=== PATIENT | female | born 1965 | race Caucasian/White ===

== ENCOUNTER 2017-04-14 17:58 | Inpatient (IN) | payer OTHER ==
[2017-04-14 18:19] LABS: Actual Bicarbonate (HCO3a) 21.6 mEq/L (22-26); Base Excess (BEa) -3.9 mEq/L (0 (+/-) 2.5); CO2 Tension 40.7 mmHg (35.0-45.0); Hematocrit-ABG 28.1 % (36.0-47.0); Hemoglobin (Hb) 9.4 g/dL (12.0-16.0); O2 Tension (PaO2) 204.5 mmHg (80.0-100.0); pH, Arterial 7.34 (7.35-7.45)
[2017-04-14 18:20] LABS: ALV-art Gradient 457.625 (0-20); Analyzer IN Cardio ER; Calcium, Ionized 1.1 mmol/L (1.12-1.30); Puncture Site RRA
[2017-04-14 18:37] LABS: #Eosinphils 0.2 thou/uL (0.0-0.7); #Lymphocytes 1.2 thou/uL (1.20-3.40); #Monocytes 0.2 thou/uL (0.11-0.59); #Neutrophils 2.4 thou/uL (1.40-6.50); %Basophils 0.4 % (0.0-1.0); %Eosinophils 4.2 % (0.0-10.0); %Monocytes 4.7 % (0.0-10.0); %Neutrophils 59.8 % (42.0-75.0); Hemoglobin 10.3 g/dL (12.0-16.0); Mean Corpuscular Hemoglobin 29.9 pg (27.0-31.0); Mean Corpuscular Volume 90.7 fl (81.0-99.0); Mean Platelet Volume 7.6 fL (7.4-10.4); Platelet Count 230 thou/uL (130-400); RBC Distribution Width 11.5 % (11.5-14.5); Red Blood Cell (RBC) Count 3.44 mill/uL (4.20-5.40)
[2017-04-14 18:39] LABS: Bilirubin Negative (Negative); Blood, Urine Small (Negative); Clarity CLEAR (Clear); Glucose, Urine (Dipstick) 100 mg/dL (Negative); Leukocyte Small (Negative); Nitrite Negative (Negative); Protein, Urine (Dipstick) Trace mg/dL (Neg-Trace)
[2017-04-14 18:41] LABS: Bacteria/HPF None Seen HPF (None Seen); Hyaline Casts/LPF 4-6 HYALINE CAST LPF (0-3 Hyaline)
[2017-04-14 18:47] LABS: INR-International Normal Ratio 1.1; PTT 29.5 SEC (22.9-36.1); Prothrombin Time 14.4 SEC (12.0-14.7)
[2017-04-14 18:50] LABS: Renal Epithelial None Seen HPF (0-3); Transitional Epithelial NONE SEEN HPF (0-3)
[2017-04-14 18:52] LABS: Amphetamine Not Detected (NotDetected); Barbiturates Screen Not Detected (NotDetected); Benzodiazepine Screen Detected (NotDetected); Cocaine Metabolite Screen Not Detected (NotDetected); Medtox Control Line Valid? VALID (VALID); Medtox Reader # READER 1; Methadone Not Detected (NotDetected); Methamphetamine Not Detected (NotDetected); Opiate Screen Not Detected (NotDetected); Oxycodone Screen Detected (NotDetected); Phencyclidine (PCP) Not Detected (NotDetected); THC/Cannabinoid Screen Not Detected (NotDetected); Tricyclic Screen Not Detected (NotDetected)
[2017-04-14 18:55] LABS: D-Dimer Test Less than 0.27 *mcg/mL (0.27-0.43)
[2017-04-14 18:58] LABS: Alcohol Less than 10 mg/dL (Less than 10); Salicylate Less than 8.0 mg/dL (15.0-30.0)
[2017-04-14 19:00] LABS: ALT (SGPT) 27 U/L (8-55); AST (SGOT) 29 U/L (5-34); Albumin 3.5 g/dL (3.5-5.0); Alkaline Phosphatase 81 U/L (40-150); Anion Gap 18 mmol/L (10-20); BUN (Urea Nitrogen) 10 mg/dL (9.8-20.1); Bilirubin, Total 0.2 mg/dL (0.2-1.2); CK (CPK) 65 U/L (29-168); Calc. Creatinine Clearance 0 mL/min (70-130); Calcium 8.3 mg/dL (7.8-10.44); Carbon Dioxide 17 mmol/L (22-29); Chloride 108 mmol/L (98-107); Estimated GFR-MDRD 81; Globulin 2.4 g/dL (2.4-3.5); Glucose 182 mg/dL (70-105); Potassium 3.9 mmol/L (3.5-5.1); Protein, Total 5.9 g/dL (6.0-8.3); Sodium 139 mmol/L (136-145)
[2017-04-14 19:02] LABS: CKMB 0.7 ng/mL (0-6.6); Troponin I Less than 0.010 ng/mL (< 0.028)
--- NOTE | 2017-04-14 20:03 | RAD ---
EXAM: ONE VIEW CHEST 04/14/17 HISTORY: Endotracheal tube placement. Intubation. COMPARISON: None. FINDINGS: Endotracheal tube at the level of the clavicles. Nasogastric tube extends beyond the diaphragm. Dista l tip in the left upper quadrant. Normal cardiac silhouette. Pulmonary vessels and hilum are normal. Costophrenic angles are clear. Possible opacity in the right lung base. No pneumothorax on this supin e projection. No osseous abnormalities. IMPRESSION: 1. Possible focal opacity in the right lung base. 2. Endotracheal and nasogastric tubes as above. If there is concern, consider chest CT. POS: PPP
--- NOTE | 2017-04-14 20:14 | CT ---
EXAM: NONCONTRAST HEAD CT 04/14/17 HISTORY: Fall. Unresponsive patient. COMPARISON: None. TECHNIQUE: Noncontrast head CT is performed from skull base to skull vertex. FINDINGS: No parenchymal hemorrhage. No extra-axial hematoma. No midline shift. Basilar cisterns are patent. Br ain volume is age appropriate. Cortical greco-white matter differentiation is preserved. Ventricles an d sulci are patent and symmetric. Adequate aeration of the sinuses and mastoid air cells. Calvarium i s intact. IMPRESSION: No intracranial posttraumatic sequela. POS: PPP
[2017-04-14] MEDS ORDERED: Fentanyl 100 MCG/2 ML VIAL ONE (20:15)
--- NOTE | 2017-04-14 20:16 | CT ---
EXAM: CT CERVICAL SPINE WITHOUT CONTRAST 04/14/17 HISTORY: Unresponsive patient. Patient found down. Evaluate for fracture. COMPARISON: None. TECHNIQUE: CT cervical spine is performed without contrast. Reformatted images are submitted for interpretation. FINDINGS: The visualized soft tissue neck structures, upper mediastinum, and lung apices are unremarkable. Endo tracheal and nasogastric tube are identified. Central spinal canal and neural foramina are patent. Evaluation is limited by technique. Lateral mass of C1 and C2 articulate appropriately. Odontoid process is intact. Appropriate articulat ion of the facets. Cervical spine vertebral body height is maintained. No fracture. No malalignment o n the sagittal reformatted images. IMPRESSION: No fracture. POS: PPP
[2017-04-14 20:23] LABS: Pregnancy Test - Urine (BHCG) Negative (Negative); Pregu Control Background? CLEAR/WHITE (CLR/WHITE); Pregu Control Bar Appear? YES (CONTROL BAR)
[2017-04-14] MEDS ORDERED: Azithromycin 500 MG in Sodium Chloride 0.9% 250 ML 250 ML IVPB ONE (20:30)
[2017-04-14] MEDS ORDERED: cefTRIAXone\\ROCEPHIN 2 GM in Sodium Chloride 0.9% 100 ML IVPB ONE (20:30)
[2017-04-14] MEDS ORDERED: Propofol 1,000 MG/100 ML VIAL IV ONE (20:43)
[2017-04-14] MEDS ORDERED: Ondansetron HCl/PF 4 MG/2 ML Vial IVP PRN (21:32)
[2017-04-14] MEDS ORDERED: Acetaminophen 325 MG TAB PO PRN (21:32)
[2017-04-14] MEDS ORDERED: Ondansetron ODT 4 MG TAB SL PRN (21:32)
[2017-04-14 22:35] LABS: Lactic Acid 1.5 mmol/L (0.5-2.2)
[2017-04-14] MEDS ORDERED: Sedation Protocol FS ONE (23:53)
[2017-04-14] MEDS ORDERED: Acetaminophen 650 MG Suppository PR PRN (23:53)
[2017-04-14] MEDS ORDERED: Ventilator Sedation Protocol 1 EACH FS ONE (23:53)
[2017-04-14] MEDS ORDERED: cefTRIAXone\\ROCEPHIN 2 GM in Sodium Chloride 0.9% 100 ML IVPB SCH (23:59)
[2017-04-15] MEDS ORDERED: Propofol 1,000 MG/100 ML VIAL IV PRN (00:03)
[2017-04-15] MEDS ORDERED: Lorazepam 2 MG/ML VIAL SLOW IVP PRN (00:03)
[2017-04-15] MEDS ORDERED: Fentanyl 20 MCG/ML 250 ML IVPB SCH (00:03)
[2017-04-15] MEDS ORDERED: DISCONTINUE PREVIOUS NARCOTIC PAIN MEDICATIONS AND BENZODIAZEPINES FS SCH (00:03)
[2017-04-15] MEDS ORDERED: Morphine 2 MG/ML SYRINGE SLOW IVP PRN (00:03)
[2017-04-15] MEDS: Sodium Chloride 0.9% 1,000 ML IV SCH ×3 (01:20→20:33)
--- NOTE | 2017-04-15 02:05 | HP ---
PRIMARY CARE PHYSICIAN: Sage Goldstein D.O. DATE OF ADMISSION: 04/14/2017 TIME OF SERVICE: 2210 hours. CHIEF COMPLAINT: Found down. HISTORY OF PRESENT ILLNESS: Ms. Jiménez is a 51-year-old female with a history of chronic back pa in and hypothyroidism, who was seen last normal by her earlier this morning. The patient was coherent and awake enough and apparently functioning well around 1600 hours today when she picked he r daughters up from the school. The came home at 1715 and found her unresponsive on the bed. She was mouth breathing, so he called EMS. On their arrival, she was found to be unarousable. She was not protecting her airway, so was given 1 60 mg of ketamine, 80 mg of rocuronium and intubated in the field. She was brought into the emergenc y department for evaluation. Here, she was placed on the ventilator. Labs and chest x-rays were ordered and we were subsequently called for admission. The patient is unable to give me further history. I did talk to her . He is getting her [facility] cines here so we can get a complete list. He did have a friend who is a nurse go home and take pictu res and bottles over there and revealed some Xanax and Valium the patient had that she does not isatu lly take. PAST MEDICAL HISTORY: 1. Chronic back pain. 2. Hypothyroidism. PAST SURGICAL HISTORY: 1. Rhinoplasty. 2. Hysterectomy. 3. Bladder surgery. HOME MEDICATIONS: 1. Gabapentin, dose unknown. 2. Lyrica, dose unknown. 3. Some kind of cold medicine. 4. Hydrocodone CP p.r.n. pain. 5. Levothyroxine 50 mcg daily. 6. Brisdelle 7.5 mg daily. 7. Valium 10 mg p.r.n. and Xanax as needed. I am not sure these were prescribed. We are getting a more picture of the labels to see when these were actually filled. ALLERGIES: IODINE and IODINE-CONTAINING PRODUCTS. FAMILY HISTORY: Negative for clotting or bleeding disorder. No immune dysfunction per the . SOCIAL HISTORY: Negative for habits x3. REVIEW OF SYSTEMS: A ten-point review of systems is unobtainable due to the patient being sedated an d intubated. did say she has been having more back pain over the last several days than she normally has. PHYSICAL EXAMINATION: VITAL SIGNS: Temperature is afebrile, pulse 76, blood pressure 94/54, respiratory rate 18, satting 9 8% on the ventilator on arrival. While the time of transferring to the floor, temperature is 95.0, p ulse 55, blood pressure 130/63, respiratory rate 18, satting 100% on ventilation. GENERAL: She is sedated on propofol, intubated. She is on the ventilator. HEENT: Normocephalic, atraumatic. Her pupils are 2 mm and minimally reactive. Mucous membranes are moist. There is an oral endotracheal tube in place. NECK: Supple, without lymphadenopathy, JVD, or thyromegaly. Normal carotid upstrokes without bruits . LUNGS: Clear. No wheezes, no rales, no rhonchi. No prolonged expiratory phase. CARDIOVASCULAR: She is normal cardiac and regular. She has normal S1, S2. No S3 or S4. No audible murmurs. ABDOMEN: Soft, nontender, nondistended with good bowel sounds. There is no rebound, rigidity or gua rding. EXTREMITIES: No cyanosis, no clubbing, no edema. She has 2+ peripheral pulses in the dorsalis pedis , posterior tibial, and radial arteries bilaterally. SKIN: Warm, moist, and well perfused without any rashes or lesions. MUSCULOSKELETAL: Normal to inspection. She has no inflamed joints. No palpable effusions. NEUROLOGIC: Not testable due to sedated and paralyzed status. LABORATORY DATA: Sodium 139, potassium 3.9, chloride 108, bicarbonate 17, BUN 10, creatinine 0.75, g lucose 182, calcium of 8.3. Liver function is normal. Total protein of 5.9. CBC showed a white cou nt of 4.0 with normal differential, hemoglobin 10.3, hematocrit 31.2, and platelet count is 230,000. ABG showed a pH 7.34, pCO2 of 40, pO2 of 205, O2 saturation 99%, and a bicarbonate of 21.6. D-dimer is undetectable less than 0.27. INR was 1.1. Urinalysis showed 77 white cells, no bacteria, 4-6 squamous epithelial cells, likely contaminated spe cimen. Beta hCG was negative. Prolactin was severely elevated at 143.85. Lactic acid initially 3.0, repeat 6 hours later was down to 1.5. Chest x-ray showed a possible right basilar infiltrate. CT scan of her brain and spine negative for acute injury. ASSESSMENT AND PLAN: 1. Unresponsive. The patient may have incidentally overdosed on medications, but with elevated prol actin certainly, seizure moves up the list. There is no report of bowel or bladder incontinence when the found her. We will continue to watch her. She is currently sedated on propofol. We wi ll try to wean her sedation and see Neurology when she does. We could also see if she responds well to Romazicon or to Narcan. 2. Acute hypoxemic respiratory failure, intubated in the field. She remained on the ventilator charu ght. We will try to wake her up and see if we can extubate tomorrow. 3. Chronic back pain. 4. Hypothyroidism. 5. Possible narcotic or benzodiazepine overdose. The patient's regular medicines do not include macy zodiazepines; however, she does have a bottle of Valium and Xanax at home. Urine drug screen was pos itive for these. 6. Elevated prolactin, the patient certainly could have had a seizure. If she does not wake up read monster, may need to get a neurologic evaluation.
[2017-04-15] MEDS: Clindamycin/D5W 900 MG in Premix Bag 1 BAG IVPB SCH ×3 (06:00→22:18)
[2017-04-15] MEDS ORDERED: FLU VACC QS2017-18 36 mo. & older 0.5 ML SYRINGE IM ONE (09:00)
[2017-04-15] MEDS: Famotidine/PF 20 mg/2ml Vial SLOW IVP SCH ×2 (09:30→20:33)
--- NOTE | 2017-04-15 11:51 | PDOC.PN ---
- Subjective Encounter Start Date: 04/15/17 Encounter Start Time: 08:30 Subjective: sedated on vent - Objective Resuscitation Status: Resuscitation Status FULL:Full Resuscitation MAR Reviewed: Yes Vital Signs & Weight: Vital Signs (12 hours) Temp Pulse Resp BP 04/15/17 10:50 68 105/50 L 04/15/17 07:14 56 L 114/60 04/15/17 07:00 99.3 F 04/15/17 06:00 98.0 F 04/15/17 04:00 97.7 F 15 04/15/17 02:23 53 L 04/15/17 00:00 98.4 F 15 Most Recent Monitor Data Heart Rate from ECG 54 NIBP 97/57 NIBP BP-Mean 75 Respiration from ECG 15 SpO2 100 I&O: 04/14/17 04/15/17 04/16/17 06:59 06:59 06:59 Intake Total 826.7 Output Total 1065 40 Balance -238.3 -40 Result Diagrams: 04/14/17 18:05 04/14/17 18:05 Phys Exam - Physical Examination HEENT: PERRLA, sclera anicteric Neck: no JVD, supple Respiratory: no wheezing, no rales Cardiovascular: RRR, no significant murmur Gastrointestinal: soft, non-tender, positive bowel sounds Musculoskeletal: no edema, pulses present Neurological: non-focal Dx/Plan (1) Acute respiratory failure Code(s): J96.00 - ACUTE RESPIRATORY FAILURE, UNSP W HYPOXIA OR HYPERCAPNIA Status: Acute Qualifiers: Respiratory failure complication: hypoxia Qualified Code(s): J96.01 - Acute respiratory failure with hypoxia (2) Overdose Code(s): T50.901A - POISONING BY UNSP DRUG/MEDS/BIOL SUBST, ACCIDENTAL, INIT Status: Acute (3) Hypothyroidism Code(s): E03.9 - HYPOTHYROIDISM, UNSPECIFIED Status: Chronic Qualifiers: Hypothyroidism type: unspecified Qualified Code(s): E03.9 - Hypothyroidism , unspecified (4) Chronic anemia Code(s): D64.9 - ANEMIA, UNSPECIFIED Status: Chronic - Plan weaning per pulm advice -: will await cognitive and motor function once she is off sedation -: at bedside -: hemodynamically stable, no focal signs, no seizures witnessed -: is on multiple antibiotics: levaquin, ceftriaxone and clindamycin * . Review of Systems - Medications/Allergies Allergies/Adverse Reactions: Allergies Allergy/AdvReac Type Severity Reaction Status Date / Time Iodine and Iodide Containing Allergy Verified 08/07/16 12:36 Produc Medications: Current Medications Acetaminophen (Tylenol) 650 mg MN Q4H PRN PRN Reason: Headache/Fever or Pain Famotidine (Pepcid) 20 mg SLOW IVP Q12HR [facility] [place] Last Admin: 04/15/17 09:30 Dose: 20 mg Ceftriaxone Sodium 2 gm/ (Sodium Chloride) 100 mls @ 200 mls/hr IVPB 2359 MARLENE Last Admin: 04/15/17 01:20 Dose: 100 mls Clindamycin Phosphate/Dextrose (900 mg/ Device) 50 mls @ 100 mls/hr IVPB Q8HR [facility] [place] Last Admin: 04/15/17 06:00 Dose: 50 mls Levofloxacin 750 mg/ Device 150 mls @ 100 mls/hr IVPB Q24HR [facility] [place] Last Admin: 04/15/17 01:24 Dose: 150 mls Sodium Chloride (Normal Saline 0.9%) 1,000 mls @ 100 mls/hr IV .Q10H [facility] [place] Last Admin: 04/15/17 01:20 Dose: 1,000 mls Fentanyl (Fentanyl Cadd) 250 mls @ 0 mls/hr IVPB INF MARLENE; Titrate PRN Reason: Protocol Stop: 05/15/17 00:03 Fentanyl Citrate (Fentanyl Bolus) 250 mls @ 0 mls/hr IVPB PRN PRN; As Directed PRN Reason: Breakthrough pain Stop: 05/15/17 00:03 Lorazepam (Ativan) 2 mg SLOW IVP Q2H PRN PRN Reason: Anxiety to achieve Mahoney 2-3 Stop: 05/15/17 00:03 Morphine Sulfate (Morphine) 2 mg SLOW IVP Q2H PRN PRN Reason: Breakthrough pain Stop: 05/15/17 00:03 Discontinue Previous Narcotic Pain Medications And Benzodiazepines 1 each FS .ONE [facility] Stop: 05/15/17 00:03 Ondansetron HCl (Zofran) 4 mg IVP Q6H PRN PRN Reason: Nausea/Vomiting Propofol (Diprivan) 1,000 mg IV INF PRN; Protocol PRN Reason: TO ACHIEVE MAHONEY SCORE 2-3 Stop: 05/15/17 00:03
[2017-04-15] MEDS ORDERED: levETIRAcetam In NaCl (Iso-Os) 1,500 MG in Premix Bag 1 BAG IVPB SCH ×2 (13:15)
--- NOTE | 2017-04-15 13:28 | CON ---
DATE OF CONSULTATION: 04/15/2017 SERVICE: Pulmonary Medicine REASON FOR CONSULTATION: Intubated patient. HISTORY OF PRESENT ILLNESS: The patient is a 51-year-old white female. She was last seen in her [facility] yesterday. Everything was normal at that time and there was no viral prodrome or infectious issues. The patient's significant other went to work. When he came home, she was blue, and unresponsive. She had vomitus at the mouth. She does have chronic pain and anxiety issues for w gay is prescribed benzodiazepines and narcotics. She has no history of overdose that we are aware o f. She was intubated and brought to the emergency department. She cannot provide any additional francy ments of the history. PAST MEDICAL HISTORY: 1. Chronic back pain. 2. Hypothyroidism. PAST SURGICAL HISTORY: 1. Rhinoplasty. 2. Hysterectomy. 3. Bladder surgery. ALLERGIES: IODINE. MEDICATIONS: List of inpatient medications were reviewed. No specific updates were made at this sylvia e. FAMILY HISTORY: Noncontributory. SOCIAL HISTORY: Negative for alcohol, tobacco or illicit drug use. That being said, she over uses s ome of her home prescription medications. REVIEW OF SYSTEMS: Review of systems cannot be obtained as the patient is currently intubated under the influence of some sedation. PHYSICAL EXAMINATION: VITAL SIGNS: Afebrile with a T-max of 99.3. Pulse 68, blood pressure 105/50, respirations 15, satur ation 100% on 30% FiO2 and PEEP of 5. GENERAL: The patient is intubated. With some noxious stimuli, she is responding appropriately. She moves her bilateral lower extremities, upper extremities. She is breathing over the ventilator and demonstrates good eye reflexes HEENT: Normocephalic, atraumatic. Sclerae are white, conjunctivae pink. Oral mucosa is moist witho ut lesions. LUNGS: Decent air entry. Rhonchi are present. No prolonged expiratory phase or wheezing is appreci ated. HEART: Normal rate, regular. ABDOMEN: Soft, nontender, nondistended. Bowel sounds are positive. MUSCULOSKELETAL: No cyanosis or clubbing. There is no pitting in the bilateral lower extremities. NEUROLOGIC: Grossly nonfocal. LABORATORY DATA: WBC 4.0, hemoglobin 10.3, platelets 230,000. INR 1.1, D-dimer 0.27. PH 7.34, pCO2 40, pO2 204 on 100% FiO2 at this time. Lactate is cleared to 1.5. Basic metabolic profile, liver f unction studies are otherwise unremarkable. Prolactin level is quite elevated. Urinalysis is unrema rkable. Acetaminophen level is elevated, benzodiazepine, oxycodone screen is positive. Plasma alcoh ol was negative as well. IMAGIN. CT of the brain demonstrates no acute intracranial abnormality. 2. CT of the C-spine demonstrates no obvious fracture or subluxation. 3. Chest x-ray demonstrates endotracheal tube is in good position, roughly 2 cm above the level of t he mohan. Right lung base has a possible opacification, perhaps consistent with aspiration related changes. Otherwise, no acute cardiopulmonary abnormalities identified. ASSESSMENT: 1. Acute hypoxic respiratory failure. 2. Metabolic encephalopathy. 3. Seizure, possible. 4. Medication overuse including benzodiazepine and narcotics. PLAN: I will turn off the propofol. All sedating medications and pain medications will be held for the time being. Once the patient wakes up more clearly, she will be put on spontaneous breathing tri al and extubation will be considered. Pulmonary Care will continue to follow while the patient remai ns in this location. Critical care time: 40 minutes.
[2017-04-16] MEDS ORDERED: Morphine 2 MG/ML SYRINGE SLOW IVP SCH (02:15)
[2017-04-16] MEDS: Sodium Chloride 0.9% 1,000 ML IV SCH (06:02)
[2017-04-16] MEDS: Clindamycin/D5W 900 MG in Premix Bag 1 BAG IVPB SCH (06:03)
[2017-04-16] MEDS: Famotidine/PF 20 mg/2ml Vial SLOW IVP SCH (08:53)
--- NOTE | 2017-04-16 12:12 | PDOC.PN ---
- Subjective Encounter Start Date: 04/16/17 Encounter Start Time: 09:40 Subjective: got extubated this am -: has some hoarseness, no sob -: at bedside, moves all extre, oriented - Objective Resuscitation Status: Resuscitation Status FULL:Full Resuscitation MAR Reviewed: Yes Vital Signs & Weight: Vital Signs (12 hours) Temp Pulse Resp BP Pulse Ox 04/16/17 11:00 99 F 04/16/17 08:00 99.3 F 76 17 100 04/16/17 07:00 99.3 F 04/16/17 06:00 15 04/16/17 04:00 98.4 F 19 04/16/17 02:55 69 139/82 04/16/17 02:00 15 Weight Admit Weight 151 lb Weight 154 lb 5.177 oz Most Recent Monitor Data Heart Rate from ECG 81 NIBP 125/43 NIBP BP-Mean 89 Respiration from ECG 18 SpO2 100 I&O: 04/15/17 04/16/17 04/17/17 06:59 06:59 06:59 Intake Total 826.7 3625.8 90 Output Total 1065 848 320 Balance -238.3 2777.8 -230 Result Diagrams: 04/14/17 18:05 04/14/17 18:05 Phys Exam - Physical Examination HEENT: PERRLA, moist MMs Neck: no JVD, supple Respiratory: no wheezing, no rales rhonchi+ Cardiovascular: RRR, no significant murmur Gastrointestinal: soft, non-tender, positive bowel sounds Musculoskeletal: no edema, pulses present Neurological: non-focal, moves all 4 limbs Psychiatric: A&O x 3 Dx/Plan (1) Acute respiratory failure Code(s): J96.00 - ACUTE RESPIRATORY FAILURE, UNSP W HYPOXIA OR HYPERCAPNIA Status: Resolved Qualifiers: Respiratory failure complication: hypoxia Qualified Code(s): J96.01 - Acute respiratory failure with hypoxia (2) Overdose Code(s): T50.901A - POISONING BY UNSP DRUG/MEDS/BIOL SUBST, ACCIDENTAL, INIT Status: Acute (3) Hypothyroidism Code(s): E03.9 - HYPOTHYROIDISM, UNSPECIFIED Status: Chronic Qualifiers: Hypothyroidism type: unspecified Qualified Code(s): E03.9 - Hypothyroidism , unspecified (4) Chronic anemia Code(s): D64.9 - ANEMIA, UNSPECIFIED Status: Chronic - Plan oob to chair as tolerated -: counselled to exercise on bed -: oral liq diet and advance as tolerated -: hemodynamically and neurologically stable -: oral omnicef, may dc in am if stable * . Review of Systems - Medications/Allergies Allergies/Adverse Reactions: Allergies Allergy/AdvReac Type Severity Reaction Status Date / Time Iodine and Iodide Containing Allergy Verified 08/07/16 12:36 Produc Medications: Current Medications Acetaminophen (Tylenol) 650 mg SC Q4H PRN PRN Reason: Headache/Fever or Pain Famotidine (Pepcid) 20 mg SLOW IVP Q12HR [facility] Last Admin: 04/16/17 08:53 Dose: 20 mg Clindamycin Phosphate/Dextrose (900 mg/ Device) 50 mls @ 100 mls/hr IVPB Q8HR [facility] Last Admin: 04/16/17 06:03 Dose: 50 mls Levofloxacin 750 mg/ Device 150 mls @ 100 mls/hr IVPB Q24HR [facility] Last Admin: 04/16/17 00:46 Dose: 150 mls Sodium Chloride (Normal Saline 0.9%) 1,000 mls @ 100 mls/hr IV .Q10H [facility] Last Admin: 04/16/17 06:02 Dose: Not Given Ondansetron HCl (Zofran) 4 mg IVP Q6H PRN PRN Reason: Nausea/Vomiting Sodium Chloride (Flush - Normal Saline) 10 ml IVF Q12HR [facility] Last Admin: 04/16/17 08:53 Dose: 10 ml Sodium Chloride (Flush - Normal Saline) 10 ml IVF PRN PRN PRN Reason: Saline Flush
[2017-04-16] MEDS ORDERED: traMADol HCl 50 MG TAB PO PRN (12:31)
--- NOTE | 2017-04-16 12:42 | PRG ---
DATE OF SERVICE: 04/16/2017 SERVICE: Medicine. INTERVAL HISTORY: The patient is doing fine from a respiratory standpoint. She denies any current f lm, chills, nausea, vomiting or chest discomfort. She is essentially returning to her usual state of health and has no specific complaints otherwise. She is on mechanical ventilation this morning a nd following all commands. She is breathing comfortably, but otherwise, requesting us to be removed. She is much more awake and alert. She is CAM negative. OBJECTIVE: VITAL SIGNS: Afebrile, pulse 81, blood pressure 125/43, respirations 18, saturation 100% on 27% FiO2 and PEEP of 5. GENERAL: The patient is awake, alert, no apparent distress. She is CAM negative. HEENT: Normocephalic, atraumatic. Sclerae are white, conjunctivae pink. Oral and nasal mucosa is m oist without lesions. LUNGS: Excellent air entry. There is no prolonged expiratory phase, wheezing, rhonchi or crackles. HEART: Normal rate, regular. ABDOMEN: Soft, nontender, nondistended. Bowel sounds positive. MUSCULOSKELETAL: No cyanosis or clubbing. There is no pitting in the bilateral lower extremities. NEUROLOGIC: Grossly nonfocal. LABORATORY DATA: WBC 4.0, hemoglobin 10.3, platelets are 3000. Lactate has cleared to 1.5. ASSESSMENT: 1. Acute hypoxic respiratory failure, resolved. 2. Metabolic encephalopathy, resolved. 3. Overdose of benzodiazepines and narcotics. DISCUSSION: The patient's EEG was negative for any epileptiform discharges. The Keppra has been dis continued. We put on a spontaneous breathing trial and if she meets criteria, extubation will be con sidered. I will transition her over to p.o. Augmentin, which can be continued to complete a 5-day c ourse for possible aspiration related Diseases. Pulmonary Critical Care will continue to follow monae e she remains in this location.
[2017-04-16] MEDS: Gabapentin 300 MG CAP PO SCH ×2 (15:13→20:43)
[2017-04-16] MEDS: Ondansetron HCl/PF 4 MG/2 ML Vial IVP PRN (16:36)
[2017-04-16] MEDS: Cefdinir 300 MG CAP PO SCH (20:40)
[2017-04-17 04:34] LABS: Anion Gap 11 mmol/L (10-20); BUN (Urea Nitrogen) 9 mg/dL (9.8-20.1); Calc. Creatinine Clearance 108 mL/min (70-130); Calcium 8.9 mg/dL (7.8-10.44); Carbon Dioxide 22 mmol/L (22-29); Chloride 108 mmol/L (98-107); Estimated GFR-MDRD Greater than 90; Glucose 66 mg/dL (70-105); Magnesium 1.8 mg/dL (1.6-2.6); Phosphorus 2.7 mg/dL (2.3-4.7); Potassium 3.3 mmol/L (3.5-5.1); Sodium 138 mmol/L (136-145)
[2017-04-17] MEDS: Cefdinir 300 MG CAP PO SCH ×2 (10:13→20:12)
[2017-04-17] MEDS: Gabapentin 300 MG CAP PO SCH ×3 (10:13→20:12)
[2017-04-17] MEDS: Ondansetron HCl/PF 4 MG/2 ML Vial IVP PRN (10:15)
--- NOTE | 2017-04-17 13:31 | PRG ---
DATE OF SERVICE: 04/17/2017 SERVICE: Pulmonary Medicine. INTERVAL HISTORY: The patient is doing great from a respiratory standpoint. She denies any current fevers, chills, nausea, vomiting. She has a little bit of chest discomfort in the anterior chest ass ociated with her chest compressions. Outside of this, there have been no events overnight. She had a little bit of nausea, but no vomiting. PHYSICAL EXAMINATION: VITAL SIGNS: Afebrile, pulse 59, blood pressure 113/66, respirations 18, saturation 98% on room air. GENERAL: Patient is awake, alert, in no apparent distress. LUNGS: Excellent air entry. There is no prolonged expiratory phase or wheezing. No rhonchi are pre sent, but clear with cough. HEART: Normal rate, regular. ABDOMEN: Soft, nontender, nondistended. Bowel sounds are positive. MUSCULOSKELETAL: No cyanosis or clubbing. There is no pitting in the bilateral lower extremities. NEUROLOGIC: Grossly nonfocal. LABORATORY DATA: Basic metabolic profile is only significant for potassium of 3.5. Magnesium and ph osphorus all within normal limits. The prolactin has returned to normal range. Urine cultures negat samy. ASSESSMENT: 1. Acute hypoxic respiratory failure, resolved. 2. Metabolic encephalopathy, resolved. 3. Overdose with benzodiazepines and narcotics. 4. Aspiration pneumonitis versus community-acquired pneumonia secondary to overt aspiration, DISCUSSION AND PLAN: The patient will need to have a repeat chest x-ray in the outpatient setting in 4 weeks to make certain the infiltrate has cleared. She can complete a 5-day course of Augmentin. At this point, there is no respiratory issue keeping the patient in the hospital. As such, she has n o further requirements for inpatient Pulmonary or Critical Care opinion, I will sign off. If she dec ompensates, please give Dr. Guevara a phone call over the weekend.
[2017-04-17 13:36] VITALS: BMI 26.4
[2017-04-17] MEDS: Albuterol Sulfate 1.25 MG/3 ML NEB NEB SCH ×2 (13:52→23:38)
--- NOTE | 2017-04-17 15:23 | PDOC.PN ---
- Subjective Encounter Start Date: 04/17/17 Encounter Start Time: 12:00 Subjective: c/o sob and retrosternal dyscomfort -: had some dizziness this am - Objective Resuscitation Status: Resuscitation Status FULL:Full Resuscitation MAR Reviewed: Yes Vital Signs & Weight: Vital Signs (12 hours) Temp Pulse Resp BP Pulse Ox 04/17/17 13:52 65 14 99 04/17/17 08:00 97.9 F 59 L 18 113/66 98 04/17/17 04:00 98.0 F 59 L 16 117/59 L 97 Weight Admit Weight 151 lb Weight 154 lb 5.177 oz Most Recent Monitor Data Heart Rate from ECG 67 NIBP 98/41 NIBP BP-Mean 71 Respiration from ECG 16 SpO2 100 I&O: 04/16/17 04/17/17 04/18/17 06:59 06:59 06:59 Intake Total 3625.8 882 200 Output Total 848 585 Balance 2777.8 297 200 Result Diagrams: 04/14/17 18:05 04/17/17 03:51 Phys Exam - Physical Examination HEENT: PERRLA, moist MMs Neck: no JVD, supple Respiratory: no wheezing, no rales Cardiovascular: RRR, no significant murmur Gastrointestinal: soft, non-tender, no distention, positive bowel sounds Musculoskeletal: no edema, pulses present Neurological: non-focal, moves all 4 limbs Psychiatric: A&O x 3 Dx/Plan (1) Acute respiratory failure Code(s): J96.00 - ACUTE RESPIRATORY FAILURE, UNSP W HYPOXIA OR HYPERCAPNIA Status: Resolved Qualifiers: Respiratory failure complication: hypoxia Qualified Code(s): J96.01 - Acute respiratory failure with hypoxia (2) Overdose Code(s): T50.901A - POISONING BY UNSP DRUG/MEDS/BIOL SUBST, ACCIDENTAL, INIT Status: Resolved (3) Hypothyroidism Code(s): E03.9 - HYPOTHYROIDISM, UNSPECIFIED Status: Chronic Qualifiers: Hypothyroidism type: unspecified Qualified Code(s): E03.9 - Hypothyroidism , unspecified (4) Chronic anemia Code(s): D64.9 - ANEMIA, UNSPECIFIED Status: Chronic - Plan may dc anytime if she is eating and amb in hallway -: d/w patient and at bedside -: augmentin x5 days -: nebs here/ inh on dc * . Review of Systems - Medications/Allergies Allergies/Adverse Reactions: Allergies Allergy/AdvReac Type Severity Reaction Status Date / Time Iodine and Iodide Containing Allergy Verified 08/07/16 12:36 Produc Medications: Current Medications Acetaminophen (Tylenol) 650 mg [place] Q4H PRN PRN Reason: Headache/Fever or Pain Albuterol Sulfate (Albuterol Sulfate) 1.25 mg NEB [id number] [facility] [place] Last Admin: 04/17/17 13:52 Dose: 1.25 mg Cefdinir (Omnicef) 300 mg PO BID [facility] [place] Last Admin: 04/17/17 10:13 Dose: 300 mg Gabapentin (Neurontin) 300 mg PO TID [facility] [place] Last Admin: 04/17/17 13:28 Dose: Not Given Ondansetron HCl (Zofran) 4 mg IVP Q6H PRN PRN Reason: Nausea/Vomiting Last Admin: 04/17/17 10:15 Dose: 4 mg Potassium Chloride (K-Dur) 40 meq PO BID[facility] Stop: 04/18/17 08:01 Sodium Chloride (Flush - Normal Saline) 10 ml IVF Q12HR MARLENE Last Admin: 04/17/17 10:13 Dose: 10 ml Sodium Chloride (Flush - Normal Saline) 10 ml IVF PRN PRN PRN Reason: Saline Flush Tramadol HCl (Ultram) 100 mg PO Q6H PRN PRN Reason: Pain Last Admin: 04/16/17 16:35 Dose: 100 mg
[2017-04-17] MEDS ORDERED: Potassium Chloride 20 MEQ TAB PO SCH (17:00)
[2017-04-18] MEDS: Albuterol Sulfate 1.25 MG/3 ML NEB NEB SCH (07:22)
[2017-04-18] MEDS: Gabapentin 300 MG CAP PO SCH (08:38)
[2017-04-18] MEDS: Cefdinir 300 MG CAP PO SCH (08:39)
[2017-04-18 08:44] VITALS: BP 131/79; TEMP 97.8
--- NOTE | 2017-04-18 14:55 | PDOC.PN ---
- Subjective Encounter Start Date: 04/18/17 Encounter Start Time: 07:15 Subjective: feels better, is eating and amb in hallway - Objective Resuscitation Status: Resuscitation Status FULL:Full Resuscitation MAR Reviewed: Yes Vital Signs & Weight: Vital Signs (12 hours) Temp Pulse Resp BP Pulse Ox 04/18/17 08:00 97.8 F 64 16 131/79 99 04/18/17 07:22 62 14 97 Weight Admit Weight 151 lb Weight 154 lb 5.177 oz Most Recent Monitor Data Heart Rate from ECG 67 NIBP 98/41 NIBP BP-Mean 71 Respiration from ECG 16 SpO2 100 I&O: 04/17/17 04/18/17 04/19/17 06:59 06:59 06:59 Intake Total 882 400 240 Output Total 585 Balance 297 400 240 Result Diagrams: 04/14/17 18:05 04/17/17 03:51 Phys Exam - Physical Examination HEENT: PERRLA, moist MMs Neck: no JVD, supple Respiratory: no wheezing, no rales Cardiovascular: RRR, no significant murmur Gastrointestinal: soft, non-tender, positive bowel sounds Musculoskeletal: no edema, pulses present Neurological: non-focal, moves all 4 limbs Psychiatric: A&O x 3 Dx/Plan (1) Acute respiratory failure Code(s): J96.00 - ACUTE RESPIRATORY FAILURE, UNSP W HYPOXIA OR HYPERCAPNIA Status: Resolved Qualifiers: Respiratory failure complication: hypoxia Qualified Code(s): J96.01 - Acute respiratory failure with hypoxia (2) Overdose Code(s): T50.901A - POISONING BY UNSP DRUG/MEDS/BIOL SUBST, ACCIDENTAL, INIT Status: Resolved (3) Hypothyroidism Code(s): E03.9 - HYPOTHYROIDISM, UNSPECIFIED Status: Chronic Qualifiers: Hypothyroidism type: unspecified Qualified Code(s): E03.9 - Hypothyroidism , unspecified (4) Chronic anemia Code(s): D64.9 - ANEMIA, UNSPECIFIED Status: Chronic - Plan hemostable -: dc pt home -: augmentin, alb inh * . Review of Systems - Medications/Allergies Allergies/Adverse Reactions: Allergies Allergy/AdvReac Type Severity Reaction Status Date / Time Iodine and Iodide Containing Allergy Verified 08/07/16 12:36 Produc
--- NOTE | 2017-04-18 20:21 | DIS ---
DATE OF ADMISSION: 04/14/2017 DATE OF DISCHARGE: 04/18/2017 DISCHARGE DISPOSITION: To home. PRIMARY DISCHARGE DIAGNOSES: Drug overdose with acute respiratory failure, hypothyroidism, chronic anemia. PROCEDURES DONE DURING HOSPITALIZATION: The patient had a CT brain done on the day of admission, which showed no acute intracranial abnormalities. Chest x- ray done showed questionable opacity in right lung base, otherwise endotracheal tube and nasogastric tubes were in place. CT cervical spine done showed no fractures. Urine culture taken on the day of admission was contaminated, H&H 10 and 31, platelet count 230. Urine test was negative. Urine tox screen was positive for benzodiazepines and oxycodone. She also had acetaminophen levels of 53.0. DISCHARGE MEDICATIONS: Albuterol inhaler q.6 hourly p.r.n., Augmentin 875 mg p.o. twice daily for 5 days, levothyroxine 50 mcg p.o. daily, lidocaine transdermal patch as before, paroxetine 20 mg daily. ALLERGIES: Allergic to IODINE. INPATIENT CONSULTS: Dr. Cruz for Pulmonology. BRIEF COURSE DURING HOSPITALIZATION: Patient initially was found down and was brought to the Emergency Room by her . The patient was intubated in the field. She was not arousable. Urine drug screen was positive for oxycodone and benzodiazepines with acetaminophen. There was also suspicion of possible aspiration. She was placed on IV antibiotics and has had consultation with Dr. Cruz for Pulmonology. Patient was successfully extubated on the morning. EEG done did not reveal any seizures. Most likely, patient's acute respiratory failure is due to medication overdose. Prior to discharge, she is ambulating and eating better. She still has some cough and is prescribed albuterol inhaler q.6 hourly p.r.n., and she needs to continue Augmentin for another 5 days. She needs follow up with her primary care physician in 1 week. Patient was counseled with regards to judicious use of pain medications if she has any. She is currently only on lidocaine patch. Please see a face to face documentation for the day of discharge on [facility]. [facility]
== END 2017-04-18 10:33 | disposition home or self-care (01) | DRG 917 ==
LOC: ERS 17:58 → CCU 20:40 → T4-B 04-16 16:18
PROVIDERS: ADMIT Emergency Medicine; ATTEND Emergency Medicine
PROC: 5A1945Z Respiratory Ventilation, 24-96 Consecutive Hours (ICD-10-PCS; principal; 2017-04-14)
DX: T42.4X1A Poisoning by benzodiazepines, accidental (unintentional), initial encounter (principal); J96.01 Acute respiratory failure with hypoxia; G93.41 Metabolic encephalopathy; T68.XXXA Hypothermia, initial encounter; G89.29 Other chronic pain; M54.9 Dorsalgia, unspecified; E03.9 Hypothyroidism, unspecified; T40.601A Poisoning by unspecified narcotics, accidental (unintentional), initial encounter; D64.9 Anemia, unspecified
CPT/HCPCS: 36415; 51702; 70450; 71045; 72125; 80048; 80053; 80306; 80307; 81003; 81015; 81025; 82550; 82553; 82805; 83605; 83735; 84100; 84146; 84484; 85025; 85379; 85610; 85730; 86850; 86900; 86901; 87086; 93005; 94002; 94003; 94640; 95816; 95819; 96361; 96374; 96375; A4216; J0456; J0696; J1953; J1956; J2270; J2405; J2704; J3010; J3490; J7050; S0028

== ENCOUNTER 2017-04-20 15:48 | Inpatient (IN) | payer OTHER ==
[2017-04-20] MEDS ORDERED: Norepinephrine 4 MG/4 ML VIAL ONE (16:14)
[2017-04-20 16:26] LABS: Hemoglobin 11.3 g/dL (12.0-16.0); Mean Corpuscular HGB CONC 32.7 g/dL (32.0-36.0); Mean Corpuscular Hemoglobin 30.4 pg (27.0-31.0); Mean Platelet Volume 6.8 fL (7.4-10.4); Platelet Count 380 thou/uL (130-400); Red Blood Cell (RBC) Count 3.72 mill/uL (4.20-5.40); White Blood Cell (WBC) Count 20.6 thou/uL (4.8-10.8)
[2017-04-20] MEDS ORDERED: Norepinephrine 8 MG/250 ML BAG IVPB PRN (16:28)
[2017-04-20 16:30] LABS: Bilirubin Negative (Negative); Blood, Urine Small (Negative); Clarity CLOUDY (Clear); Glucose, Urine (Dipstick) Negative (Negative); Leukocyte Negative (Negative); Nitrite Negative (Negative); Protein, Urine (Dipstick) 100 mg/dL (Neg-Trace); Specific Gravity, Urine 1.019 (1.002-1.036); Urobilinogen 0.2 mg/dL (0.2-1.0); pH, Urine 6.5 (5.0-9.0)
[2017-04-20 16:34] LABS: Bacteria/HPF Rare-Few HPF (None Seen); PTT 54.2 SEC (22.9-36.1); Pregnancy Test - Urine (BHCG) Negative (Negative); Pregu Control Background? CLEAR/WHITE (CLR/WHITE); Pregu Control Bar Appear? YES (CONTROL BAR); Prothrombin Time 44.8 SEC (12.0-14.7); Specific Gravity 1.019 (1.002-1.036); Squamous Epithelial 21-50 HPF (0-3); WBC/HPF 0-3 HPF (0-3)
[2017-04-20 16:35] LABS: Pathc Cast-AUWi Flag 5.01 (0-2.49)
[2017-04-20 16:37] LABS: INR-International Normal Ratio 4.5
[2017-04-20 16:38] LABS: Alcohol Less than 10 mg/dL (Less than 10); Magnesium 2.4 mg/dL (1.6-2.6); Salicylate Less than 8.0 mg/dL (15.0-30.0)
[2017-04-20 16:39] LABS: ALT (SGPT) 192 U/L (8-55); AST (SGOT) 189 U/L (5-34); Albumin 3.3 g/dL (3.5-5.0); Alkaline Phosphatase 81 U/L (40-150); Anion Gap 26 mmol/L (10-20); BUN (Urea Nitrogen) 11 mg/dL (9.8-20.1); Bilirubin, Total 0.2 mg/dL (0.2-1.2); CK (CPK) 210 U/L (29-168); Calc. Creatinine Clearance 0 mL/min (70-130); Calcium 8.3 mg/dL (7.8-10.44); Carbon Dioxide 12 mmol/L (22-29); Chloride 106 mmol/L (98-107); Estimated GFR-MDRD 36; Globulin 2.4 g/dL (2.4-3.5); Glucose 138 mg/dL (70-105); Lipase 73 U/L (8-78); Potassium 3.6 mmol/L (3.5-5.1); Protein, Total 5.7 g/dL (6.0-8.3); Sodium 140 mmol/L (136-145)
[2017-04-20 16:43] LABS: CKMB 4.4 ng/mL (0-6.6)
[2017-04-20 16:44] LABS: Hyaline Casts/LPF 0-3 HYALINE CAST LPF (0-3 Hyaline); Other Casts/LPF None Seen LPF (0-3 Hyaline)
[2017-04-20 16:46] LABS: Band 16 % (5-11); Eosinophils 2 % (0-10); Lymphocytes 24 % (21-51); MDiff Complete? YES; Metamyelocyte 6 % (0-0); Monocytes 9 % (0-10); Myelocyte 6 % (0-0); Neutrophil 37 % (42-75); PLT Morphology Comment Appears Adequate; Polychromasia SLIGHT = 2-3 cells (100X) (0-2/hpf)
[2017-04-20 16:49] LABS: D-Dimer Test 3.59 *mcg/mL (0.27-0.43); Troponin I 0.823 ng/mL (< 0.028)
[2017-04-20] MEDS ORDERED: Sodium Bicarb 50 MEQ/50 ML Abboject 8.4% SYRINGE ONE ×2 (16:53→16:55)
--- NOTE | 2017-04-20 16:55 | RAD ---
SINGLE VIEW OF THE CHEST: Comparison: 04-14-17 at 6:26 p.m. History: Intubated patient with respiratory failure. FINDINGS: Single view of the chest shows a normal sized cardiomediastinal silhouette. There is an endotracheal tube with its tip approximately 1.9 cm from the mohan. An NG tube is seen curled in the distal esoph elena. There is a right subclavian central venous catheter with its tip in the left subclavian region. There is no evidence of consolidation, mass or pleural effusion. IMPRESSION: 1. Malpositioned NG tube and central venous catheter. Code T POS: [facility]
[2017-04-20 16:59] LABS: Actual Bicarbonate (HCO3a) 16.7 mEq/L (22-26); CO2 Tension 51.7 mmHg (35.0-45.0); Hematocrit-ABG 26.2 % (36.0-47.0); Hemoglobin (Hb) 8.9 g/dL (12.0-16.0); O2 Tension (PaO2) 79.7 mmHg (80.0-100.0); pH, Arterial 7.13 (7.35-7.45)
[2017-04-20 17:00] LABS: ALV-art Gradient 69.575 (0-20); Analyzer IN Cardio ER; Puncture Site RBRACH
[2017-04-20] MEDS ORDERED: ACETYLCYSTEINE IVPB SCH ×2 (17:15→18:15)
[2017-04-20] MEDS ORDERED: DEXTROSE 5% IVPB SCH ×2 (17:15→18:15)
[2017-04-20] MEDS ORDERED: Phytonadione 10 MG in Sodium Chloride 0.9% 50 ML IVPB SCH (17:15)
[2017-04-20] MEDS ORDERED: WATER IVPB SCH ×2 (17:15→18:15)
[2017-04-20] MEDS ORDERED: fentaNYL Citrate/PF 2,000 MCG in Sodium Chloride 0.9% 60 ML IV SCH ×3 (17:45→22:15)
[2017-04-20] MEDS ORDERED: Fentanyl CADD 250 ML ONE (18:02)
[2017-04-20] MEDS ORDERED: Cefepime 1 GM, Admixture Fee 1 EACH in Sterile Water 10 ML SLOW IVP SCH (18:15)
--- NOTE | 2017-04-20 19:13 | CT ---
CT OF BRAIN PERFORMED WITHOUT CONTRAST ENHANCEMENT: History: Altered mental status. Patient was found unresponsive by . Comparison: 04-14-17 FINDINGS: There has been development of intraventricular bleed with blood in both temporal horns as well as the left occipital horn and left lateral ventricle. This appears to originate as a basal ganglia type bl eed from the left caudate nucleus region. Some of the blood appears to be tracking in a left paravent ricular location in addition to having intraventricular blood. This may be hypertensive in origin. Th ere is subtle effacement of the sulci as compared to the prior exam. Some element of cerebral edema c ould be present. IMPRESSION: Interventricular blood which appears to begin in the region of the left caudate nucleus with blood wh ich appears to track along the margins of the body of the left lateral ventricle and even towards the occipital horn but there is also interventricular blood present. This may have started as a hyperten sive type hemorrhage. I believe that the sulci are suddenly more effaced than on the previous 04-14-17 study suggesting some element of cerebral edema. These findings were telephoned to Dr. Denis. POS: [facility]
[2017-04-20] MEDS ORDERED: Human Prothrombin Complx(PCC) 1,000 UNIT in Admixture Fee 1 EACH IV SCH (19:15)
[2017-04-20] MEDS ORDERED: Phytonadione 10 MG/ML AMP SLOW IVP SCH (19:15)
[2017-04-20] MEDS ORDERED: Magnesium Sulfate 2 GM/100 ML BAG ONE (20:06)
[2017-04-20] MEDS ORDERED: Desmopressin Acetate 4 mcg/ml (1ml Chg) 10ml Vial IVP SCH (20:15)
[2017-04-20] MEDS ORDERED: Sedation Protocol FS ONE (20:31)
[2017-04-20] MEDS ORDERED: Lacri-Lube Opth Oint 3.5 GM TUBE EA EYE PRN (20:31)
[2017-04-20] MEDS ORDERED: CCU Electrolyte Replacement 1 EACH IVPB ONE (20:31)
[2017-04-20 20:55] LABS: Troponin I 1.007 ng/mL (< 0.028)
[2017-04-20] MEDS ORDERED: Lorazepam 2 MG/ML VIAL SLOW IVP PRN ×2 (20:58→22:01)
[2017-04-20] MEDS ORDERED: Morphine 2 MG/ML SYRINGE SLOW IVP PRN ×2 (20:58→22:01)
[2017-04-20] MEDS ORDERED: Fentanyl BOLUS 250 ML IVPB PRN ×2 (20:58→22:01)
[2017-04-20] MEDS ORDERED: DISCONTINUE PREVIOUS NARCOTIC PAIN MEDICATIONS AND BENZODIAZEPINES FS SCH ×2 (20:58→22:01)
[2017-04-20] MEDS ORDERED: Propofol 1,000 MG/100 ML VIAL IV PRN ×2 (20:58→22:01)
--- NOTE | 2017-04-20 20:58 | RAD ---
SUPINE CHEST: History: Respiratory distress. Comparison: Earlier exam, same date. FINDINGS: NG tube is coiled, the tip is directed cephalad in the distal esophagus. A right subclavian line has been slightly retracted although the tip still lies in the left brachiocephalic vein. Endotracheal tu be is approximately 1 cm above the mohan, directed toward the right mainstem bronchus. There is some bibasilar atelectatic lung changes seen. IMPRESSION: 1. NG tube coiled in the distal esophagus with the tip directed cephalad. 2. Endotracheal tube, the tip of the tube is approximately 1 cm above the mohan, directed towards th e right main stem bronchus. 3. Bibasilar atelectatic lung change. POS: [facility]
[2017-04-20] MEDS ORDERED: Potassium Chloride 40 MEQ in Sodium Chloride 0.9% 250 ML 250 ML IVPB PRN (20:59)
[2017-04-20] MEDS ORDERED: Potassium Chloride 40 MEQ in Premix Bag 1 BAG IVPB PRN (20:59)
[2017-04-20] MEDS ORDERED: Magnesium Oxide 400 MG TAB PO PRN ×2 (20:59)
[2017-04-20] MEDS ORDERED: Potassium Chloride 20 MEQ TAB PO PRN (20:59)
[2017-04-20] MEDS ORDERED: Potassium Phosphate 9 MMOL in Sodium Chloride 0.9% 100 ML IVPB PRN (20:59)
[2017-04-20] MEDS ORDERED: Potassium Phosphate 12 MMOL in Sodium Chloride 0.9% 250 ML 250 ML IV PRN (20:59)
[2017-04-20] MEDS ORDERED: CCU ELECTROLYTE REPLACEMENT PROTOCOL FS PRN (20:59)
[2017-04-20] MEDS ORDERED: Magnesium 2 GM/NS 0.9% 100 ML 2 GM in Premix Bag 1 BAG IVPB PRN (20:59)
[2017-04-20] MEDS ORDERED: Potassium Phosphate 15 MMOL in Sodium Chloride 0.9% 250 ML 250 ML IV PRN (20:59)
[2017-04-20 21:50] LABS: INR-International Normal Ratio 1.9; PTT 34.1 SEC (22.9-36.1); Prothrombin Time 22.1 SEC (12.0-14.7)
[2017-04-20] MEDS ORDERED: Fentanyl CADD 250 ML IVPB SCH (22:01)
[2017-04-20 22:48] LABS: Troponin I 1.049 ng/mL (< 0.028)
[2017-04-20] MEDS: Piperacillin/Tazobactam 3.375 GM in Sodium Chloride 0.9% 100 ML IVPB SCH (23:37)
[2017-04-20] MEDS: Famotidine/PF 20 mg/2ml Vial SLOW IVP SCH (23:37)
--- NOTE | 2017-04-20 23:43 | HP ---
CHIEF COMPLAINT: Suicidal overdose. HISTORY OF PRESENT ILLNESS: This is a 51-year-old white female who has a known history of psychiatri c disorder with a suicidal attempt almost a week ago. Patient was at home and her went to [facility] office this morning and when he returned back, she found the patient with a suicide note and with m ultiple empty bottles. She took an unknown quantity of Tylenol, Lyrica, and gabapentin. Some of the medications which are known and patient was found lying on the floor and the immediately bro ught the patient to the ER. Prior to this, he also did a CPR on the patient as the patient had no pu lse, but when the EMS came, they did find the pulse on the patient and the patient arrived in the ER, she was completely obtunded and did not regain her consciousness. There was no hypothermia protocol initiated in the ER and because of the altered mental status, a CT of the head was done which showed an evidence of intraventricular bleed in the left caudate nucleus. Neurosurgery was consulted, but at this point did offer no other treatment, but monitoring the liver function parameters. Patient wa s noted to have elevated Tylenol level. Patient was started on acetylcysteine. Patient was also noted to have a possible evidence of aspiration pneumonia. No other history could b e obtained from the patient nor with the family member as there was nobody available at the bedside w sarahy Aleman saw the patient. Patient was seen and she was already intubated and was started on Levophed as the patient dropped her blood pressures in the ER. An INR was drawn from the art line which was gonzales raul on the right femoral artery which is still intact at this time. PAST MEDICAL HISTORY: 1. Chronic back pain. 2. Hypothyroidism. PAST SURGICAL HISTORY: 1. Rhinoplasty. 2. History of hysterectomy. 3. Bladder surgery. HOME MEDICATIONS: 1. Gabapentin, unknown dose. 2. Lyrica. 3. Hydrocodone. 4. Levothyroxine 50 mcg daily. 5. Brisdelle 7.5 mg daily. 6. Valium. ALLERGIES: IODINE, IODINE CONTAINING PRODUCTS. FAMILY HISTORY: Negative for any clotting or bleeding disorders. No immune dysfunction was noted in the family. SOCIAL HISTORY: Negative for smoking, alcohol or illicit drug use. She lives with her . REVIEW OF SYSTEMS: Unable to obtain as the patient is completely obtunded and intubated. No family member is available at this time. PHYSICAL EXAMINATION: VITAL SIGNS: Blood pressure 148/78 on Levophed drip, pulse of 67, respiratory rate of 21 on motorcycle mechanic al ventilator. LABORATORY DATA: WBC 20.6, hemoglobin is 11.3, hematocrit is 34.6, platelets of 380. Sodium is 140, potassium 3.6, chloride is 106, BUN is 11, creatinine is 1.54. Lactic acid 12.8. TSH is 13. INR was 4.5 when she came in came down to 1.9 after vitamin K. ASSESSMENT AND PLAN: 1. Acute hypoxic respiratory failure. 2. Acute Tylenol poisoning with a Tylenol level of 158. 3. Acute intraventricular bleed in the left caudate nucleus. 4. Severe depression. 5. Aspiration pneumonia. 6. Sepsis. 7. Septic shock. 8. Acute kidney injury. 9. Severe hypothyroidism. PLAN: 1. Plan is to closely monitor this patient in the ICU along with bilingual account manager, Dr. Cruz who was al ready informed. Patient is mechanically ventilated at this time. We will continue with the motorcycle mechanic al ventilation and we will continue with acetylcysteine and drip per Poison Control protocol. We smitha l closely monitor the patient. We will repeat the LFTs in the morning. Patient has elevated INR whi ch did come down to 1.9 with vitamin K. We will repeat INR in the morning. We will closely monitor the liver enzymes and will consult GI in the morning once the patient is more alert. 2. Patient has evidence of intraventricular bleed. Neurosurgery has already been consulted from the ER and they offered no treatment at this time as it is more of medical management trying to treat th e coagulopathy from the liver failure from acute Tylenol poisoning. 3. Patient has evidence of septic shock likely secondary to aspiration pneumonia. Patient has eleva leola white count of 20,000. Patient has been started on IV antibiotics with cefepime. We will contin ue with this medication at this time. 4. Patient has acute kidney injury. We will continue the patient on IV fluids at this time. 5. Hypotension, septic shock. Patient is on Levophed. We will continue with this medication with L evophed at this time and per Neurosurgery recommendations for the brain bleed, we will try to maintai n the blood pressures from systolic 140-160. 5. Patient has severe hypothyroidism. Need to be corrected this as an outpatient. We will closely monitor this patient at this time. 6. DVT prophylaxis, sequential compression devices. Patient's prognosis is very poor at this time. We will discuss with the in the morning and w ill update the patient's progress. I spent 75 minutes for this patient of this one hour as critical care time starts from 9:45 p.m. to 1 0:45 p.m.
[2017-04-21] MEDS: Sodium Chloride 0.9% 1,000 ML IV SCH ×3 (00:05→22:57)
--- NOTE | 2017-04-21 00:08 | CON ---
DATE OF CONSULTATION: 04/20/2017 ATTENDING PHYSICIAN: Dr. Jorge Jacobson. HISTORY OF PRESENT ILLNESS: The patient is a 51-year-old female with past medical history of depression, who presented to the ER following intentional overdose. The patient was last seen normal this morning at 0800 hours. She was found down this evening by her unresponsive with agonal breathing. There were multiple antimedicine bottles and patient left a suicide note. She is believed to have overdosed on Lamictal, Tylenol, Lyrica, and gabapentin. She was brought to the emergency department per EMS. On arrival, she was hypothermic, hypotensive with a GCS of 3. Patient was intubated shortly after arrival. Lab work revealed multiple metabolic abnormalities including an elevated INR of 4.5. CT head showed a left basal ganglia bleed with intraventricular hemorrhage. Exam- I am seeing the patient at the bedside. She is intubated, but not sedated. Her pupils are fixed, dilated, and nonreactive. She has no corneal reflex or gag reflex. She is not over-breathing the vent. She has no motor response. GCS is 3. Exam is limited by current critical condition. PAST MEDICAL HISTORY: Depression. PAST SURGICAL HISTORY: Hysterectomy, rhinoplasty, bladder surgeries. SOCIAL HISTORY: Patient lives at home. She is . ALLERGIES: She allergic to IODINE. ASSESSMENT AND PLAN: The patient appears to have an intentional overdose of multiple medications with an elevated INR as well as multiple other metabolic abnormalities with a spontaneous left basil ganglia bleed with intraventricular hemorrhage. She is being admitted to the ICU under the medicine service and we are consulting regarding her acute intracranial bleed. We agree with plan to reverse her elevated INR with vitamin K as well as Kcentra. She will need to continue supportive care and we will plan to repeat her head CT for evaluation of her interventricular basal ganglia bleed. I have discussed this plan with Dr. Jacobson, who agrees. Please reach out to Neurosurgery Service for additional questions or concerns. FLORENCIA
[2017-04-21] MEDS: Ipratropium Bromide 2.5 ml Neb NEB SCH ×4 (00:32→18:31)
--- NOTE | 2017-04-21 01:34 | CON ---
DATE OF CONSULTATION: 04/20/2017 SERVICE: Pulmonary Medicine. REASON FOR CONSULTATION: Respiratory failure. HISTORY OF PRESENT ILLNESS: The patient is a 51-year-old white female with past medical history significant for previous history of opiate abuse. We previously thought it was an unintentional overdose. Either way, the patient was discharged from the hospital 2 days ago. When she arrived home, apparently everything was back to normal, but she left a note and was later found down after protracted course. Based on what the family is suggesting to me, the note suggests that at this time, she had an intentional overdose on her medication. She cannot provide any additional elements of the history right now because she is completely encephalopathic. It is my understanding that she had returned to her usual state of health before discharge from the hospital. PAST MEDICAL HISTORY: 1. Chronic back pain. 2. Hypothyroidism. PAST SURGICAL HISTORY: 1. Rhinoplasty. 2. Hysterectomy. 3. Bladder surgery. SOCIAL HISTORY: Noncontributory. Negative for alcohol, tobacco, or illicit drug use. She had a history of overdosing on narcotics. FAMILY HISTORY: Noncontributory. ALLERGIES: IODINE. MEDICATIONS: List of her inpatient medications have been reviewed. Multiple updates were made at this time. REVIEW OF SYSTEMS: This cannot be obtained as the patient is currently intubated and encephalopathic. PHYSICAL EXAMINATION: VITAL SIGNS: Afebrile, pulse 64, blood pressure 131/79, respirations 16, saturation 99% on 27% FiO2 and PEEP of 5. GENERAL: Patient is intubated. She has required absolutely no sedation and is encephalopathic. HEENT: Normocephalic, atraumatic. Sclerae are white. Conjunctivae pink. Oral mucosa is moist without lesions. LUNGS: Excellent air entry with no prolonged expiratory phase, wheezing, rhonchi, or crackles. HEART: Normal rate, regular. ABDOMEN: Soft, nontender, nondistended. Bowel sounds are positive. MUSCULOSKELETAL: No cyanosis or clubbing. There is no pitting in the bilateral lower extremities. NEUROLOGIC: She has pupils that are both dilated and slowly responsive to light bilaterally. She overbreathes the ventilator. She does not have a very good cough or gag with deep suctioning. She does not withdraw from any noxious stimuli in the bilateral upper or lower extremities. LABORATORY DATA: WBC 20.6, hemoglobin 11.3, platelets 380,000. Band count 16% , neutrophil count 37%. INR 4.5, D-dimer 3.59. PH 7.13, pCO2 52, pO2 79. At that time, her rate was 14 and her tidal volume was 450. Lactate was 12.8 but has cleared to 3.0. Phosphorus 12.3. Magnesium 2.4, ammonia 34. TSH is 13. CK 210, AST and ALT are minimally elevated at 189 and 192, respectively. Creatinine 1.54. Bicarbonate 12 with an anion gap of 26. Basic metabolic profile is otherwise unremarkable. Troponin 0.8. Urinalysis is essentially unremarkable. Urine test is negative. Acetaminophen level is 158, salicylates are negative, and plasma alcohol is also unremarkable. IMAGING: CT brain demonstrates intraventricular hemorrhage. There is no significant soft tissue damage that is noted. Chest x-ray demonstrates right subclavian central venous catheter, is malpositioned however, had an acceptable location. Endotracheal tube is angled toward the right mainstem bronchus, but barely above the mohan. There is an enteric catheter that traverses midline, but looks back up into the distal esophagus. There is a significant amount of air in the stomach. There is no acute cardiopulmonary abnormality otherwise identified. ASSESSMENT: 1. Acute hypoxic respiratory failure. 2. Out of hospital pulseless electrical activity arrest. 3. Overdose secondary to narcotics. 4. Tylenol overdose. 5. Intraventricular hemorrhage. 6. Suicide attempt. 7. Diabetes insipidus, suspected. PLAN: The Abebe catheter was initially placed and there was no urine output. After 10-15 minutes, she started to black pickler and over the past 2 hours, she had 2.5 liters of urine. As such, we will empirically treat as though this is diabetes insipidus. I will give her 2 liters of fluid to offset, which she has already put out. DDAVP will concurrently be given and we will try to match the patient's urine output with half normal saline moving forward. I will repeat labs in the morning including potassium, magnesium, and phosphorus. She has already cleared her lactate. My suspicion is that the previous acidosis has resolved and will back off on a respiratory rate ever so slightly. Of note, she is overbreathing the ventilator and she is doing a fairly decent job of controlling her acid base status at this point. An ABG will be obtained once again tomorrow morning. Neurosurgery is already aware about this patient. They have talked to Dr. Denis and suggested to him that she is not a candidate for any operative maneuvers at this time. If her neurologic condition deteriorates, I will give them a phone call once again. Her neurologic exam is much worse off at this time than it was previously, and I am concerned that she could have had a severe brain injury associated with her prolonged downtime. Previously, however, she took over 18 hours to start coming around. Critical care time; 30 minutes. FLORENCIA
[2017-04-21] MEDS ORDERED: DEXTROSE 5% IVPB SCH ×2 (03:00→23:59)
[2017-04-21] MEDS ORDERED: ACETYLCYSTEINE IVPB SCH ×2 (03:00→23:59)
[2017-04-21] MEDS ORDERED: WATER IVPB SCH ×2 (03:00→23:59)
[2017-04-21 04:45] LABS: INR-International Normal Ratio 1.8; Prothrombin Time 21.1 SEC (12.0-14.7)
[2017-04-21 05:05] LABS: Band 36 % (5-11); Lymphocytes 20 % (21-51); MDiff Complete? YES; Mean Corpuscular HGB CONC 34.4 g/dL (32.0-36.0); Mean Corpuscular Hemoglobin 30.3 pg (27.0-31.0); Mean Platelet Volume 6.7 fL (7.4-10.4); Metamyelocyte 2 % (0-0); Neutrophil 42 % (42-75); PLT Morphology Comment Appears Adequate; Platelet Count 311 thou/uL (130-400); RBC Distribution Width 11.7 % (11.5-14.5); Red Blood Cell (RBC) Count 3.97 mill/uL (4.20-5.40); White Blood Cell (WBC) Count 3.7 thou/uL (4.8-10.8)
[2017-04-21 05:17] LABS: ALT (SGPT) 652 U/L (8-55); AST (SGOT) 922 U/L (5-34); Albumin 3.5 g/dL (3.5-5.0); Alkaline Phosphatase 71 U/L (40-150); Anion Gap 12 mmol/L (10-20); BUN (Urea Nitrogen) 9 mg/dL (9.8-20.1); Bilirubin, Total 0.9 mg/dL (0.2-1.2); Calc. Creatinine Clearance 75 mL/min (70-130); Carbon Dioxide 26 mmol/L (22-29); Chloride 106 mmol/L (98-107); Estimated GFR-MDRD 68; Globulin 2.8 g/dL (2.4-3.5); Glucose 91 mg/dL (70-105); Potassium 2.8 mmol/L (3.5-5.1); Protein, Total 6.3 g/dL (6.0-8.3); Sodium 141 mmol/L (136-145)
[2017-04-21] MEDS: Piperacillin/Tazobactam 3.375 GM in Sodium Chloride 0.9% 100 ML IVPB SCH ×4 (05:33→23:00)
[2017-04-21] MEDS: Potassium Chloride 40 MEQ in Sodium Chloride 0.9% 250 ML 250 ML IVPB SCH ×3 (05:45→15:26)
[2017-04-21] MEDS ORDERED: Potassium Chloride 40 MEQ in Sodium Chloride 0.9% 250 ML 250 ML IVPB SCH (06:00)
[2017-04-21 07:21] LABS: Actual Bicarbonate (HCO3a) 23.7 mEq/L (22-26); Base Excess (BEa) -1.7 mEq/L (0 (+/-) 2.5); CO2 Tension 42.7 mmHg (35.0-45.0); Calcium, Ionized 1.1 mmol/L (1.12-1.30); Hematocrit-ABG 34.6 % (36.0-47.0); Hemoglobin (Hb) 11.6 g/dL (12.0-16.0); O2 Tension (PaO2) 66.7 mmHg (80.0-100.0); Puncture Site RRA; pH, Arterial 7.36 (7.35-7.45)
[2017-04-21 07:22] LABS: ALV-art Gradient 71.085 (0-20)
--- NOTE | 2017-04-21 07:39 | CT ---
PRELIMINARY REPORT/[facility]/EMERGENCY AFTER HOURS PROCEDURE: EXAM: CT Head Without Intravenous Contrast CLINICAL HISTORY: 51 years old, female; Condition or disease; Other: Ich; Patient HX: F/u ich TECHNIQUE: Axial computed tomography images of the head/brain without intravenous contrast. COMPARISON: CT Brain WO Con 2017-04-20 18:32 FINDINGS: Intraventricular hemorrhage, grossly stable in appearance. Ventricles are grossly stable in size. Presumed hemorrhage in the left caudate head and body/tail noted, grossly stable No acute territorial infarction, midline shift or cisternal effacement. The calvarium is intact. Air fluid levels in the sphenoid and left maxillary sinus is observed IMPRESSION: Grossly stable left caudate hemorrhage extending into the ventricular system. Presumed inflammatory changes in the paranasal sinuses. Thank you for allowing us to participate in the care of your patient. Dictated and Authenticated by: Francisco Duron MD 04/21/2017 3:51 AM Central Time ([place] & [place]) FINAL REPORT CT BRAIN WITHOUT CONTRAST: I agree with the preliminary report given by Dr. Francisco Duron of [facility]. POS: [facility]
[2017-04-21] MEDS: Famotidine/PF 20 mg/2ml Vial SLOW IVP SCH ×2 (07:48→21:04)
[2017-04-21] MEDS ORDERED: Cefepime 1 GM in Syringe 10 ML SLOW IVP SCH (09:00)
--- NOTE | 2017-04-21 09:11 | RAD ---
PORTABLE CHEST 1 VIEW: DATE: 04/21/17. TIME: 5:24 a.m. HISTORY: Respiratory failure. FINDINGS: Comparison is made with the exam of the previous day. Endotracheal tube and right subclavian central line positions are unchanged. There has been repositi oning of the nasogastric tube with the tip in the projection of the stomach in the left upper quadran t. The heart size is normal. Mild bibasilar atelectatic changes are again seen. No pneumothoraces or large effusions are identified. There are degenerative changes in the spine. POS: [facility]
[2017-04-21] MEDS ORDERED: Sodium Chloride 0.45% 1,000 ML IV SCH (10:15)
--- NOTE | 2017-04-21 10:23 | PRG ---
DATE OF SERVICE: 04/21/2017 SERVICE: Pulmonary Medicine. INTERVAL HISTORY: The patient has made once again a remarkable recovery. Her brain seems to be work ing again. She is following commands and nodding yes or no appropriately. She is moving all 4 extre mities with command. She has no specific complaints of pain or shortness of breath presently. PHYSICAL EXAMINATION: VITAL SIGNS: Afebrile, pulse 76, blood pressure 155/62, respirations 13, saturation 94% on 31% FiO2 and a PEEP of 5. GENERAL: Patient is somnolent, but she does wake up appropriately with gentle stimulation. Afterwar ds, she will drift back off to sleep. HEENT: Normocephalic, atraumatic. Sclerae are white. Conjunctivae pink. Oral and nasal mucosa is moist without lesions. LUNGS: Decent air entry. There is no prolonged expiratory phase, wheezing, rhonchi, or crackles. HEART: Normal rate, regular. ABDOMEN: Soft, nontender, nondistended. Bowel sounds positive. MUSCULOSKELETAL: No cyanosis or clubbing. NEUROLOGIC: Grossly nonfocal. LABORATORY DATA: WBC 3.7, hemoglobin 12.0, platelets 311,000. Neutrophil count is 42% and a band co unt is 36% and up trending. INR 1.8. PH 7.36, pCO2 of 43, pO2 of 67. Potassium 2.8. Basic metabol ic profile is, otherwise, unremarkable. AST and ALT are both up trending. Liver function studies ar e, otherwise, unremarkable. Cardiac enzyme is stable at 1.05. Magnesium is normal. Urinalysis is e ssentially unremarkable. Acetaminophen level is 158. Blood cultures x2 and urine culture negative. IMAGING: Chest x-ray demonstrates endotracheal tube is in good position. The right subclavian centr al catheter is unchanged. NG tube has been repositioned and the tip is projecting over the stomach i n the left upper quadrant. Degenerative changes of the spine are present. ASSESSMENT: 1. Acute hypoxic respiratory failure. 2. Out of hospital pulseless electrical activity. 3. Overdose secondary to narcotic and Tylenol. 4. Intraventricular hemorrhage. 5. Suicide attempt. PLAN: I will discontinue the patient's DDAVP. We will watch her urine output very closely, and we w ill try to keep her even in her ins and outs over the next 24-48 hours. Neurologically, the patient has made a profound recovery. The CT of the head from this morning demonstrated no interval change. Now that we can assess her neurologic function more easily, we will withhold any additional imaging studies based on neurologic condition. Pulmonary Critical Care will continue to follow. Critical care time: 30 minutes.
--- NOTE | 2017-04-21 17:40 | PDOC.PN ---
- Subjective Encounter Start Date: 04/21/17 Encounter Start Time: 17:38 (late entry) Subjective: intubated and not waking up for me but opened eyes for family eralier - Objective MAR Reviewed: Yes Vital Signs & Weight: Vital Signs (12 hours) Temp Pulse Resp BP Pulse Ox 04/21/17 16:00 98.8 F 9 L 04/21/17 14:47 84 97/48 L 04/21/17 14:00 9 L 04/21/17 13:14 77 85/42 L 04/21/17 12:00 21 H 04/21/17 11:01 76 161/56 H 04/21/17 10:00 9 L 04/21/17 08:25 76 155/62 H 04/21/17 08:00 13 04/21/17 07:00 98.6 F 04/21/17 06:48 98.6 F 72 13 97 04/21/17 06:00 13 Weight Admit Weight 139 lb Weight 139 lb 1.787 oz Most Recent Monitor Data Heart Rate from ECG 84 NIBP 107/51 NIBP BP-Mean 76 Respiration from ECG 9 SpO2 94 I&O: 04/20/17 04/21/17 04/22/17 06:59 06:59 06:59 Intake Total 1440 2559 Output Total 1965 379 Balance -525 2180 Result Diagrams: 04/21/17 04:00 04/21/17 04:00 Additional Labs: Microbiology 04/20/17 17:21 Venous blood - Left Arm Blood Culture - Preliminary Specimen has been received and culture in progress. No Growth to date. 04/20/17 16:56 Venous blood - Right Arm Blood Culture - Preliminary Specimen has been received and culture in progress. No Growth to date. 04/20/17 16:20 Urine vigil catheter Urine Culture - Preliminary NO GROWTH AT 12 HOURS Laboratory Tests 04/20/17 04/20/17 04/20/17 16:20 16:20 16:20 INR Potassium 3.6 Troponin I 0.823 H* Acetaminophen 158.0 H* 04/20/17 04/20/17 04/20/17 16:20 20:08 21:35 INR 4.5 H* Potassium Troponin I 1.007 H* 1.049 H* Acetaminophen 04/20/17 04/21/17 04/21/17 21:35 04:00 04:00 INR 1.9 1.8 Potassium 2.8 L* Troponin I Acetaminophen Radiology Reviewed by me: Yes (Brain CT-stable ICH) Phys Exam - Physical Examination Constitutional: NAD intubated HEENT: PERRLA, moist MMs, sclera anicteric, oral pharynx no lesions ETT Neck: no JVD Respiratory: no wheezing, no rales, no rhonchi, clear to auscultation bilateral Cardiovascular: RRR, no significant murmur Gastrointestinal: soft, no distention, positive bowel sounds Musculoskeletal: no edema, pulses present Dx/Plan (1) Intentional acetaminophen poisoning Code(s): T39.1X2A - POISONING BY 4-AMINOPHENOL DERIVATIVES, SELF-HARM, INIT Status: Acute Qualifiers: Encounter type: initial encounter Qualified Code(s): T39.1X2A - Poisoning by 4-Aminophenol derivatives, intentional self-harm, initial encounter (2) Suicide attempt by acetaminophen overdose Code(s): T39.1X2A - POISONING BY 4-AMINOPHENOL DERIVATIVES, SELF-HARM, INIT Status: Acute Qualifiers: Encounter type: initial encounter Qualified Code(s): T39.1X2A - Poisoning by 4-Aminophenol derivatives, intentional self-harm, initial encounter (3) Intracerebral hemorrhage Code(s): I61.9 - NONTRAUMATIC INTRACEREBRAL HEMORRHAGE, UNSPECIFIED Status: Acute Qualifiers: Intracerebral hemorrhage etiology: nontraumatic Laterality: left (4) Coagulopathy Status: Acute (5) Metabolic encephalopathy Code(s): G93.41 - METABOLIC ENCEPHALOPATHY Status: Acute (6) Cardiac arrest with pulseless electrical activity Code(s): I46.9 - CARDIAC ARREST, CAUSE UNSPECIFIED Status: Acute (7) Acute respiratory failure Code(s): J96.00 - ACUTE RESPIRATORY FAILURE, UNSP W HYPOXIA OR HYPERCAPNIA Status: Resolved Qualifiers: Respiratory failure complication: hypoxia Qualified Code(s): J96.01 - Acute respiratory failure with hypoxia - Plan plan discussed w/ family, DVT proph w/SCDs Cont Acetylcysteine per protocol.mentation improving -: on levophed for ? permissive HTN.had low Bp in ER last night -: stable ICH.INR normal w Vit K.monitor -: Vent weaning per PCCM. -: am labs.MHMR when stable * . Review of Systems - Review of Systems Other: can not be obtained due to Intubated state and encephalopathy - Medications/Allergies Allergies/Adverse Reactions: Allergies Allergy/AdvReac Type Severity Reaction Status Date / Time Iodine and Iodide Containing Allergy Verified 08/07/16 12:36 Produc Medications: Current Medications Famotidine (Pepcid) 20 mg SLOW IVP Q12HR [facility] Last Admin: 04/21/17 07:48 Dose: 20 mg Norepinephrine Bitartrate (Levophed) 250 mls @ 0 mls/hr IVPB INF PRN; Protocol ; Titrate PRN Reason: MAINTAIN SBP 140-160 Miscellaneous Medication 1,000 unit/ Miscellaneous Medication mls @ 0 mls/hr IV INF MARLENE PRN Reason: As Directed Stop: 04/21/17 19:16 Piperacillin Sod/Tazobactam (Sod 3.375 gm/ Sodium Chloride) 100 mls @ 200 mls/ hr IVPB Q6HR [facility] Last Admin: 04/21/17 15:26 Dose: 100 mls Potassium Chloride 40 meq/ (Sodium Chloride) 270 mls @ 135 mls/hr IVPB ASDIR PRN PRN Reason: FOR SERUM K+ 2.5 - 3.5 Potassium Chloride 40 meq/ (Device) 100 mls @ 50 mls/hr IVPB ASDIR PRN PRN Reason: FOR SERUM K+ 2.5 - 3.5 Magnesium Sulfate 1 gm/ Sodium (Chloride) 102 mls @ 102 mls/hr IV PRN PRN PRN Reason: MAG LEVEL 1.4 - 2.0 Magnesium Sulfate 2 gm/ Device 100 mls @ 100 mls/hr IVPB ASDIR PRN PRN Reason: MAGNESIUM < 1.4 Potassium Phosphate 9 mmol/ (Sodium Chloride) 103 mls @ 25.75 mls/hr IVPB ASDIR PRN PRN Reason: Phosphate 1.0-1.8 Potassium Phosphate 12 mmol/ (Sodium Chloride) 254 mls @ 63.5 mls/hr IV ASDIR PRN PRN Reason: Serum phosphate 0.5-0.9 Potassium Phosphate 15 mmol/ (Sodium Chloride) 255 mls @ 63.75 mls/hr IV ASDIR PRN PRN Reason: Serum Phos < 0.5 Acetylcysteine 5,650 mg/ (Dextrose/Water) 1,000 mls @ 62.5 mls/hr IVPB NOW [facility] Stop: 04/21/17 18:59 Last Admin: 04/21/17 02:43 Dose: 1,000 mls Potassium Chloride 40 meq/ (Sodium Chloride) 270 mls @ 67.5 mls/hr IVPB 0600, 1000,1400 [facility] Stop: 04/21/17 17:59 Last Admin: 04/21/17 15:26 Dose: 270 mls Sodium Chloride (1/2 Normal Saline) 1,000 mls @ 0 mls/hr IV .Q0M MARLENE PRN Reason: As Directed Ipratropium [place] (Atrovent) 2.5 ml NEB [id number] [facility] Last Admin: 04/21/17 13:14 Dose: 2.5 ml Lorazepam (Ativan) 2 mg SLOW IVP Q2H PRN PRN Reason: Anxiety to achieve [place] 2-3 Stop: 05/20/17 20:58 Magnesium Oxide (Magnesium Oxide) 400 mg PO BIDPRN PRN PRN Reason: FOR SERUM MAG 1.4 - 2.0 Magnesium Oxide (Magnesium Oxide) 800 mg PO PRN PRN PRN Reason: FOR SERUM MAG < 1.4 Mineral Oil/White Petrolatum (Lacri-Lube Ointment) 0 gm EA EYE PRN PRN PRN Reason: Dry Eyes Miscellaneous Medication (Phos-Nak) 1 pkt PO TIDPRN PRN PRN Reason: FOR PHOS LEVEL 1.0 - 1.8 Miscellaneous Medication (Phos-Nak) 2 pkt PO TIDPRN PRN PRN Reason: FOR PHOS LEVEL 0.5 - 1.0 Morphine Sulfate (Morphine) 2 mg SLOW IVP Q2H PRN PRN Reason: Breakthrough pain Stop: 05/20/17 20:58 Ccu Electrolyte (Replacement Protocol) 0 each FS PRN PRN PRN Reason: FOR ELECTROLYTE REPLACEMENT Discontinue Previous Narcotic Pain Medications And Benzodiazepines 1 each FS .ONE [facility] Stop: 05/20/17 22:01 Potassium Chloride (K-Dur) 40 meq PO ASDIR PRN PRN Reason: FOR SERUM K+ 2.5 - 3.5 Potassium Chloride (Klor-Con) 40 meq PER TUBE ASDIR PRN PRN Reason: FOR SERUM K+ 2.5-3.5 Sodium Chloride (Flush - Normal Saline) 10 ml IVF Q12HR [facility] Last Admin: 04/21/17 07:48 Dose: 10 ml Sodium Chloride (Flush - Normal Saline) 10 ml IVF PRN PRN PRN Reason: Saline Flush
[2017-04-21 23:10] LABS: Acetaminophen Less than 6.0 mcg/mL (10.0-30.0)
[2017-04-22] MEDS: Ipratropium Bromide 2.5 ml Neb NEB SCH ×2 (00:22→06:53)
[2017-04-22 05:01] LABS: ALT (SGPT) 364 U/L (8-55); AST (SGOT) 219 U/L (5-34); Albumin 2.8 g/dL (3.5-5.0); Alkaline Phosphatase 76 U/L (40-150); Anion Gap 7 mmol/L (10-20); BUN (Urea Nitrogen) 5 mg/dL (9.8-20.1); Bilirubin, Total 0.6 mg/dL (0.2-1.2); Calc. Creatinine Clearance 77 mL/min (70-130); Calcium 7.9 mg/dL (7.8-10.44); Carbon Dioxide 24 mmol/L (22-29); Chloride 110 mmol/L (98-107); Estimated GFR-MDRD 78; Globulin 2.5 g/dL (2.4-3.5); Glucose 161 mg/dL (70-105); Potassium 4.1 mmol/L (3.5-5.1); Protein, Total 5.3 g/dL (6.0-8.3); Sodium 137 mmol/L (136-145)
[2017-04-22 05:19] LABS: Band 17 % (5-11); Hemoglobin 9.6 g/dL (12.0-16.0); Lymphocytes 6 % (21-51); MDiff Complete? YES; Mean Corpuscular Hemoglobin 29.9 pg (27.0-31.0); Mean Corpuscular Volume 90.6 fl (81.0-99.0); Mean Platelet Volume 6.9 fL (7.4-10.4); Monocytes 4 % (0-10); Neutrophil 73 % (42-75); PLT Morphology Comment Appears Adequate; Platelet Count 228 thou/uL (130-400); RBC Distribution Width 12.3 % (11.5-14.5); RBC Morphology Normal; White Blood Cell (WBC) Count 10.1 thou/uL (4.8-10.8)
[2017-04-22] MEDS: Piperacillin/Tazobactam 3.375 GM in Sodium Chloride 0.9% 100 ML IVPB SCH ×4 (05:23→22:59)
[2017-04-22] MEDS: Sodium Chloride 0.9% 1,000 ML IV SCH ×2 (08:51→19:54)
[2017-04-22] MEDS: Famotidine/PF 20 mg/2ml Vial SLOW IVP SCH ×2 (08:51→20:34)
[2017-04-22] MEDS ORDERED: Ipratropium Bromide 2.5 ml Neb NEB PRN (10:38)
--- NOTE | 2017-04-22 10:52 | PRG ---
DATE OF SERVICE: 04/22/2017 SERVICE: Pulmonary Medicine INTERVAL HISTORY: The patient is doing really fantastic from a respiratory standpoint. This morning , she is a little bit more awake. She breathes comfortably on the ventilator. We dropped off the ra te and she picked up very nicely with spontaneous respirations. She is moving all 4 extremities and demonstrates decent strength. She can pick her head up off the bed. That being said, she has episod es of significant somnolence interposed with a little agitation. As such, we are going to give her a spontaneous breathing trial and see how she performs. If she does well, extubation will be consider ed. There were no events overnight. PHYSICAL EXAMINATION: VITAL SIGNS: Afebrile, with a T-max 100.0, pulse 71, blood pressure 123/66, respirations of 16, satu ration 97% on 21% FiO2 and PEEP of 5. GENERAL: The patient is intubated. She is still somnolent from the influence from medication or int raventricular bleed. HEENT: Normocephalic, atraumatic. Sclerae are white, conjunctivae pink. Oral mucosa is moist witho ut lesions. LUNGS: Excellent air entry. There is no prolonged expiratory phase, wheeze, rhonchi or crackle at t his time. HEART: Normal rate, regular. ABDOMEN: Soft, nontender, nondistended, bowel sounds positive. MUSCULOSKELETAL: No cyanosis or clubbing. There is no pitting in the bilateral lower extremities. NEUROLOGIC: Grossly nonfocal today. LABORATORY DATA: WBC 10.1, hemoglobin 9.6, platelets 228,000. INR 1.8. Creatinine 0.78. Basic met abolic profile is otherwise unremarkable. Potassium is much improved at 4.1. AST and ALT are down t rending. Troponin is negative. Blood cultures x2 and urine culture are negative. ASSESSMENT: 1. Acute hypoxic respiratory failure. 2. Metabolic encephalopathy, resolved. 3. Out of hospital pulseless electrical arrest. 4. Overdose secondary to narcotic, and Tylenol. 5. Interventricular hemorrhage. 6. Suicide attempt x2 which in 2 weeks. DISCUSSION AND PLAN: We will continue the current course of therapy. Support care will be continued . I will put on a spontaneous breathing trial and if she meets criteria, extubation will be consider ed. I would like for her to wake up a touch more and sustain wakefulness. That being said, I do thi nk it would be to her benefit to get her out of bed and start moving her around to see if we can prev ent the interventricular hemorrhage from becoming an issue. Certainly if she has any neurologic decl ine, stat CT scan will be performed and Neurosurgery will be notified, but for the time being, we smitha l follow her neurologic exam to make certain she remains stable. Critical Care will continue to foll ow while she remains in this location. Critical care time: 30 minutes.
--- NOTE | 2017-04-22 11:48 | PDOC.PN ---
- Subjective Encounter Start Date: 04/22/17 Encounter Start Time: 10:15 Subjective: awakens easily on vent -: follows verbal stimuli, moves all extremities -: at bedside - Objective MAR Reviewed: Yes Vital Signs & Weight: Vital Signs (12 hours) Temp Pulse Resp BP Pulse Ox 04/22/17 10:53 72 123/66 04/22/17 10:00 16 04/22/17 08:00 98.4 F 22 H 04/22/17 07:55 98.4 F 71 11 L 100 04/22/17 06:58 71 107/60 04/22/17 06:53 73 14 99 04/22/17 05:58 11 L 04/22/17 04:00 11 L 04/22/17 03:09 75 107/59 L 04/22/17 02:00 9 L 04/22/17 00:22 72 114/55 L 04/22/17 00:00 9 L Weight Admit Weight 139 lb Weight 125 lb 3.561 oz Most Recent Monitor Data Heart Rate from ECG 71 NIBP 123/66 NIBP BP-Mean 92 Respiration from ECG 16 SpO2 97 I&O: 04/21/17 04/22/17 04/23/17 06:59 06:59 06:59 Intake Total 1440 4697.7 Output Total 1965 1369 275 Balance -525 3328.7 -275 Result Diagrams: 04/22/17 03:53 04/22/17 03:53 Phys Exam - Physical Examination HEENT: PERRLA, moist MMs Neck: no JVD, supple Respiratory: no wheezing, no rales Cardiovascular: RRR, no significant murmur Gastrointestinal: soft, non-tender, positive bowel sounds Musculoskeletal: no edema, pulses present Neurological: non-focal, moves all 4 limbs Dx/Plan (1) Acute respiratory failure Code(s): J96.00 - ACUTE RESPIRATORY FAILURE, UNSP W HYPOXIA OR HYPERCAPNIA Status: Acute Qualifiers: Respiratory failure complication: hypoxia Qualified Code(s): J96.01 - Acute respiratory failure with hypoxia (2) Overdose Code(s): T50.901A - POISONING BY UNSP DRUG/MEDS/BIOL SUBST, ACCIDENTAL, INIT Status: Acute Qualifiers: Injury intent: intentional self-harm Comment: tylenol and likely norcotics (3) Coagulopathy Status: Acute (4) Intracerebral hemorrhage Code(s): I61.9 - NONTRAUMATIC INTRACEREBRAL HEMORRHAGE, UNSPECIFIED Status: Acute Qualifiers: Intracerebral hemorrhage etiology: nontraumatic Comment: left caudate area hemorrhage with intraventricular hemorrhage (5) Suicide attempt by acetaminophen overdose Code(s): T39.1X2A - POISONING BY 4-AMINOPHENOL DERIVATIVES, SELF-HARM, INIT Status: Acute Qualifiers: Encounter type: subsequent encounter Qualified Code(s): T39.1X2D - Poisoning by 4-Aminophenol derivatives, intentional self-harm, subsequent encounter (6) Chronic anemia Code(s): D64.9 - ANEMIA, UNSPECIFIED Status: Chronic (7) Hypothyroidism Code(s): E03.9 - HYPOTHYROIDISM, UNSPECIFIED Status: Chronic Qualifiers: Hypothyroidism type: unspecified Qualified Code(s): E03.9 - Hypothyroidism , unspecified (8) Cardiac arrest with pulseless electrical activity Code(s): I46.9 - CARDIAC ARREST, CAUSE UNSPECIFIED Status: Chronic Comment: brief cpr done by at home prior to ems arriving - Plan check inr today, last was 1.8 -: is on acetylcysteine, empiric zosyn -: will likely get extubated if she does well with weaning -: will need to go to inpt psych unit once she recovers either from here/rehab -: lft's are slowly trending down due to tylenol toxicity * . Review of Systems - Medications/Allergies Allergies/Adverse Reactions: Allergies Allergy/AdvReac Type Severity Reaction Status Date / Time Iodine and Iodide Containing Allergy Verified 08/07/16 12:36 Produc Medications: Current Medications Famotidine (Pepcid) 20 mg SLOW IVP Q12HR [facility] Last Admin: 04/22/17 08:51 Dose: 20 mg Piperacillin Sod/Tazobactam (Sod 3.375 gm/ Sodium Chloride) 100 mls @ 200 mls/ hr IVPB Q6HR [facility] Last Admin: 04/22/17 05:23 Dose: 100 mls Potassium Chloride 40 meq/ (Sodium Chloride) 270 mls @ 135 mls/hr IVPB ASDIR PRN PRN Reason: FOR SERUM K+ 2.5 - 3.5 Potassium Chloride 40 meq/ (Device) 100 mls @ 50 mls/hr IVPB ASDIR PRN PRN Reason: FOR SERUM K+ 2.5 - 3.5 Magnesium Sulfate 1 gm/ Sodium (Chloride) 102 mls @ 102 mls/hr IV PRN PRN PRN Reason: MAG LEVEL 1.4 - 2.0 Magnesium Sulfate 2 gm/ Device 100 mls @ 100 mls/hr IVPB ASDIR PRN PRN Reason: MAGNESIUM < 1.4 Potassium Phosphate 9 mmol/ (Sodium Chloride) 103 mls @ 25.75 mls/hr IVPB ASDIR PRN PRN Reason: Phosphate 1.0-1.8 Potassium Phosphate 12 mmol/ (Sodium Chloride) 254 mls @ 63.5 mls/hr IV ASDIR PRN PRN Reason: Serum phosphate 0.5-0.9 Potassium Phosphate 15 mmol/ (Sodium Chloride) 255 mls @ 63.75 mls/hr IV ASDIR PRN PRN Reason: Serum Phos < 0.5 Sodium Chloride (Normal Saline 0.9%) 1,000 mls @ 100 mls/hr IV .Q10H MARLENE PRN Reason: As Directed Last Admin: 04/22/17 08:51 Dose: 1,000 mls Ipratropium [place] (Atrovent) 2.5 ml NEB [id number] PRN PRN Reason: SOB &/or Wheezing Magnesium Oxide (Magnesium Oxide) 400 mg PO BIDPRN PRN PRN Reason: FOR SERUM MAG 1.4 - 2.0 Magnesium Oxide (Magnesium Oxide) 800 mg PO PRN PRN PRN Reason: FOR SERUM MAG < 1.4 Mineral Oil/White Petrolatum (Lacri-Lube Ointment) 0 gm EA EYE PRN PRN PRN Reason: Dry Eyes Miscellaneous Medication (Phos-Nak) 1 pkt PO TIDPRN PRN PRN Reason: FOR PHOS LEVEL 1.0 - 1.8 Miscellaneous Medication (Phos-Nak) 2 pkt PO TIDPRN PRN PRN Reason: FOR PHOS LEVEL 0.5 - 1.0 Ccu Electrolyte (Replacement Protocol) 0 each FS PRN PRN PRN Reason: FOR ELECTROLYTE REPLACEMENT Discontinue Previous Narcotic Pain Medications And Benzodiazepines 1 each FS .ONE [facility]LEN[facility] Stop: 05/20/17 22:01 Potassium Chloride (K-Dur) 40 meq PO ASDIR PRN PRN Reason: FOR SERUM K+ 2.5 - 3.5 Potassium Chloride (Klor-Con) 40 meq PER TUBE ASDIR PRN PRN Reason: FOR SERUM K+ 2.5-3.5 Sodium Chloride (Flush - Normal Saline) 10 ml IVF Q12HR [facility] Last Admin: 04/22/17 08:51 Dose: 10 ml Sodium Chloride (Flush - Normal Saline) 10 ml IVF PRN PRN PRN Reason: Saline Flush
[2017-04-22 12:29] LABS: INR-International Normal Ratio 1.4; PTT 39.5 SEC (22.9-36.1); Prothrombin Time 17.6 SEC (12.0-14.7)
[2017-04-23] MEDS: Ondansetron HCl/PF 4 MG/2 ML Vial SLOW IVP PRN ×2 (00:35→17:41)
[2017-04-23 04:41] LABS: INR-International Normal Ratio 1.2; PTT 37.4 SEC (22.9-36.1); Prothrombin Time 14.9 SEC (12.0-14.7)
[2017-04-23 05:00] LABS: Hemoglobin 9.8 g/dL (12.0-16.0); Mean Corpuscular HGB CONC 33.8 g/dL (32.0-36.0); Mean Corpuscular Hemoglobin 30.2 pg (27.0-31.0); Mean Corpuscular Volume 89.5 fl (81.0-99.0); Mean Platelet Volume 7.1 fL (7.4-10.4); Platelet Count 190 thou/uL (130-400); Red Blood Cell (RBC) Count 3.23 mill/uL (4.20-5.40); White Blood Cell (WBC) Count 10.5 thou/uL (4.8-10.8)
[2017-04-23 05:01] LABS: Band 12 % (5-11); Lymphocytes 8 % (21-51); MDiff Complete? YES; Monocytes 1 % (0-10); Neutrophil 79 % (42-75)
[2017-04-23 05:07] LABS: ALT (SGPT) 246 U/L (8-55); AST (SGOT) 82 U/L (5-34); Alkaline Phosphatase 93 U/L (40-150); Anion Gap 11 mmol/L (10-20); BUN (Urea Nitrogen) 4 mg/dL (9.8-20.1); Bilirubin, Total 0.7 mg/dL (0.2-1.2); Calc. Creatinine Clearance 110 mL/min (70-130); Calcium 8.8 mg/dL (7.8-10.44); Carbon Dioxide 25 mmol/L (22-29); Chloride 107 mmol/L (98-107); Estimated GFR-MDRD Greater than 90; Globulin 2.7 g/dL (2.4-3.5); Glucose 92 mg/dL (70-105); Potassium 3.7 mmol/L (3.5-5.1); Protein, Total 5.7 g/dL (6.0-8.3); Sodium 139 mmol/L (136-145)
[2017-04-23] MEDS: Sodium Chloride 0.9% 1,000 ML IV SCH ×3 (05:29→17:41)
[2017-04-23] MEDS: Piperacillin/Tazobactam 3.375 GM in Sodium Chloride 0.9% 100 ML IVPB SCH ×4 (05:30→23:24)
[2017-04-23] MEDS: Famotidine/PF 20 mg/2ml Vial SLOW IVP SCH (08:36)
[2017-04-23] MEDS ORDERED: hydrALAZINE 20 MG/ML VIAL SLOW IVP PRN (09:29)
--- NOTE | 2017-04-23 09:32 | PDOC.PN ---
- Subjective Encounter Start Date: 04/23/17 Encounter Start Time: 09:31 Subjective: nsg notes rev, marian ovn, no new c/o, mother @ bedside -: pt is somnolent but arousable to yes/ no short answers - Objective Vital Signs & Weight: Vital Signs (12 hours) Temp Pulse Resp Pulse Ox 04/23/17 08:00 98.6 F 58 L 17 93 L Weight Admit Weight 139 lb Weight 154 lb 5.177 oz Most Recent Monitor Data Heart Rate from ECG 50 NIBP 166/68 NIBP BP-Mean 89 Respiration from ECG 21 SpO2 92 I&O: 04/22/17 04/23/17 04/24/17 06:59 06:59 06:59 Intake Total 4697.7 3194 Output Total 1369 6745 525 Balance 3328.7 669 -525 Result Diagrams: 04/23/17 03:58 04/23/17 03:58 Phys Exam - Physical Examination Constitutional: NAD lying in hospital bed HEENT: moist MMs Neck: no JVD Respiratory: no wheezing, no rales, no rhonchi, clear to auscultation bilateral limited anterior examination Cardiovascular: RRR, no significant murmur, no rub, gallop Gastrointestinal: soft, no distention, positive bowel sounds Musculoskeletal: no edema, pulses present Dx/Plan (1) Coagulopathy Status: Acute (2) Intentional acetaminophen poisoning Code(s): T39.1X2A - POISONING BY 4-AMINOPHENOL DERIVATIVES, SELF-HARM, INIT Status: Acute Qualifiers: Encounter type: initial encounter Qualified Code(s): T39.1X2A - Poisoning by 4-Aminophenol derivatives, intentional self-harm, initial encounter (3) Intracerebral hemorrhage Code(s): I61.9 - NONTRAUMATIC INTRACEREBRAL HEMORRHAGE, UNSPECIFIED Status: Acute Qualifiers: Intracerebral hemorrhage etiology: nontraumatic Comment: left caudate area hemorrhage with intraventricular hemorrhage (4) Metabolic encephalopathy Code(s): G93.41 - METABOLIC ENCEPHALOPATHY Status: Acute (5) Suicide attempt by acetaminophen overdose Code(s): T39.1X2A - POISONING BY 4-AMINOPHENOL DERIVATIVES, SELF-HARM, INIT Status: Acute Qualifiers: Encounter type: subsequent encounter Qualified Code(s): T39.1X2D - Poisoning by 4-Aminophenol derivatives, intentional self-harm, subsequent encounter (6) Cardiac arrest with pulseless electrical activity Code(s): I46.9 - CARDIAC ARREST, CAUSE UNSPECIFIED Status: Chronic Comment: brief cpr done by at home prior to ems arriving (7) Acute respiratory failure Code(s): J96.00 - ACUTE RESPIRATORY FAILURE, UNSP W HYPOXIA OR HYPERCAPNIA Status: Acute Qualifiers: Respiratory failure complication: hypoxia Qualified Code(s): J96.01 - Acute respiratory failure with hypoxia (8) Overdose Code(s): T50.901A - POISONING BY UNSP DRUG/MEDS/BIOL SUBST, ACCIDENTAL, INIT Status: Acute Qualifiers: Injury intent: intentional self-harm Comment: tylenol and likely norcotics (9) Chronic anemia Code(s): D64.9 - ANEMIA, UNSPECIFIED Status: Chronic (10) Hypothyroidism Code(s): E03.9 - HYPOTHYROIDISM, UNSPECIFIED Status: Chronic Qualifiers: Hypothyroidism type: unspecified Qualified Code(s): E03.9 - Hypothyroidism , unspecified - Plan * Intentional suicide attempt with acetaminophen overdose leading to respiratory depression, hepatic injury with coagulopathy, intracranial bleeding * respiratory depression with acute respiratory failure * appreciate pulmonary consultation * currently extubated as of 04/22 * 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 * continue to monitor LFTs * concrete mixer truck driver of coagulopathy intracranial bleed * transfer to stroke floor * monitor neurological status with low threshold for re-imaging if any concern for altered mental status * close blood pressure monitoring - prn hydralazine if needed hx of chronic pain requiring pain regimen * discussed with patients mother at bedside that we will not be empirically resuming her home pain regimen * monitor for ssx of pain or physiological w/d * need to closely watch mental status as well suicide attempt - will need [facility] consultation prior to D/C for potential transfer to inpatient psychiatric unit diet: as per speech therapy recommendations dvt ppx: sq Greater than 30 minutes spent at bedside discussing plan of care with patient' s mother at bedside . Review of Systems - Medications/Allergies Allergies/Adverse Reactions: Allergies Allergy/AdvReac Type Severity Reaction Status Date / Time Iodine and Iodide Containing Allergy Verified 08/07/16 12:36 Produc Medications: Current Medications Famotidine (Pepcid) 20 mg SLOW IVP Q12HR [facility] Last Admin: 04/23/17 08:36 Dose: 20 mg Hydralazine HCl (Apresoline) 10 mg SLOW IVP Q4H PRN PRN Reason: Hypertension Piperacillin Sod/Tazobactam (Sod 3.375 gm/ Sodium Chloride) 100 mls @ 200 mls/ hr IVPB Q6HR [facility] Last Admin: 04/23/17 05:30 Dose: 100 mls Potassium Chloride 40 meq/ (Sodium Chloride) 270 mls @ 135 mls/hr IVPB ASDIR PRN PRN Reason: FOR SERUM K+ 2.5 - 3.5 Potassium Chloride 40 meq/ (Device) 100 mls @ 50 mls/hr IVPB ASDIR PRN PRN Reason: FOR SERUM K+ 2.5 - 3.5 Magnesium Sulfate 1 gm/ Sodium (Chloride) 102 mls @ 102 mls/hr IV PRN PRN PRN Reason: MAG LEVEL 1.4 - 2.0 Magnesium Sulfate 2 gm/ Device 100 mls @ 100 mls/hr IVPB ASDIR PRN PRN Reason: MAGNESIUM < 1.4 Potassium Phosphate 9 mmol/ (Sodium Chloride) 103 mls @ 25.75 mls/hr IVPB ASDIR PRN PRN Reason: Phosphate 1.0-1.8 Potassium Phosphate 12 mmol/ (Sodium Chloride) 254 mls @ 63.5 mls/hr IV ASDIR PRN PRN Reason: Serum phosphate 0.5-0.9 Potassium Phosphate 15 mmol/ (Sodium Chloride) 255 mls @ 63.75 mls/hr IV ASDIR PRN PRN Reason: Serum Phos < 0.5 Sodium Chloride (Normal Saline 0.9%) 1,000 mls @ 75 mls/hr IV .[id number] [facility] Ipratropium [place] (Atrovent) 2.5 ml NEB [id number] PRN PRN Reason: SOB &/or Wheezing Magnesium Oxide (Magnesium Oxide) 400 mg PO BIDPRN PRN PRN Reason: FOR SERUM MAG 1.4 - 2.0 Magnesium Oxide (Magnesium Oxide) 800 mg PO PRN PRN PRN Reason: FOR SERUM MAG < 1.4 Mineral Oil/White Petrolatum (Lacri-Lube Ointment) 0 gm EA EYE PRN PRN PRN Reason: Dry Eyes Miscellaneous Medication (Phos-Nak) 1 pkt PO TIDPRN PRN PRN Reason: FOR PHOS LEVEL 1.0 - 1.8 Miscellaneous Medication (Phos-Nak) 2 pkt PO TIDPRN PRN PRN Reason: FOR PHOS LEVEL 0.5 - 1.0 Ondansetron HCl (Zofran) 4 mg SLOW IVP Q6H PRN PRN Reason: Nausea/Vomiting Last Admin: 04/23/17 00:35 Dose: 4 mg Potassium Chloride (K-Dur) 40 meq PO ASDIR PRN PRN Reason: FOR SERUM K+ 2.5 - 3.5 Potassium Chloride (Klor-Con) 40 meq PER TUBE ASDIR PRN PRN Reason: FOR SERUM K+ 2.5-3.5 Sodium Chloride (Flush - Normal Saline) 10 ml IVF Q12HR [facility] Last Admin: 04/23/17 08:37 Dose: 10 ml Sodium Chloride (Flush - Normal Saline) 10 ml IVF PRN PRN PRN Reason: Saline Flush
--- NOTE | 2017-04-23 10:57 | HP ---
DATE OF SERVICE: 04/23/2017 SERVICE: Pulmonary Medicine. INTERVAL HISTORY: The patient is doing really well from a respiratory standpoint. She remains on ro om air. She is protecting her airway. She will answer some simple questions. She will wake up easi ly with a little bit of stimulation. After leaving her alone for roughly 10 seconds, she will drift back off to sleep. That being said, her neurologic function continues to slowly improve compared to yesterday. She denies any significant headaches, nausea, vomiting or shortness of breath presently. PHYSICAL EXAMINATION: VITAL SIGNS: Afebrile, pulse 58, blood pressure 166/68, respirations 21, saturation 92% on room air. GENERAL: The patient is awake, alert, in no apparent distress. LUNGS: Decent air entry. There is no prolonged expiratory phase or wheezing. No crackles are prese nt. HEART: Normal rate, regular. ABDOMEN: Soft, nontender, nondistended. Bowel sounds positive. MUSCULOSKELETAL: No cyanosis or clubbing. There is no pitting in the bilateral lower extremities. NEUROLOGIC: Grossly nonfocal. LABORATORY DATA: WBC 10.5, hemoglobin 9.8, platelets 190,000. Band count is decreasing. INR 1.2 an d down trending. AST and ALT fall within normal limits. Basic metabolic profile is unremarkable. B lood cultures x2 and urine culture are negative to date. ASSESSMENT: 1. Acute hypoxic respiratory failure. 2. Metabolic encephalopathy, improving. 3. Out of hospital pulseless electrical activity. 4. Overdose secondary to narcotic and Tylenol. 5. Interventricular hemorrhage. 6. Suicide attempt x2 in a period of 2 weeks. PLAN: I will discontinue the Abebe catheter. We will try to mobilize the patient as much as her men tation will tolerate. I think we can transition her to the stroke unit where we will continue freque nt neuro checks. If she decompensates neurologically, stat CT scan will be done and Neurosurgery smitha l be notified. I am hopeful that no additional interventions like an external ventricular drain will be required. That being said, we will watch her closely in case this may be necessary. The metabol ic encephalopathy continues to clear. Hopefully in another 24-48 hours, she will be in a position wh ere she can be transitioned out of the hospital, but she will need to stay here for at least another 24 hours. Pulmonary Critical Care will continue to follow.
--- NOTE | 2017-04-23 15:06 | PQF ---
CLINICAL DOCUMENTATION IMPROVEMENT CLARIFICATION FORM: ICD-10 Updated PLEASE DO AN ADDENDUM TO THE PROGRESS NOTE WITH ANY DOCUMENTATION UPDATES OR ADDITIONS AND CARRY THROUGH TO DC SUMMARY. THANK YOU. DATE: 04/23/17 ATTN: Dr. Mendoza Please exercise your independent, professional judgment in responding to the clarification form. Clinical indicators are provided on the bottom of this form for your review Please check appropriate box(s) to clarify if the following diagnosis has been ruled in our ruled out: SEPSIS. SEPTIC SHOCK (H&P) [ ] Ruled in diagnosis [ ] Continue to treat [ ] Resolved [ ] Ruled out diagnosis [ x ] Cannot rule out diagnosis Patient was empirically treated for possible aspiration pneumonia as infectious etiology of systemic shock requiring vasopressors. All of her serological parameters could be driven by both suicide attempt vs aspiration pneumonia vs aspiration pneumonitis. She has empirically been treated per sepsis protocol with improvement. [ ] Other diagnosis [ ] Unable to determine In addition, please specify: Present on Admission (POA): [ x ] Yes [ ] No [ ] Unable to determine For continuity of documentation, please document condition throughout progress notes and discharge summary. Thank You. CLINICAL INDICATORS - SIGNS / SYMPTOMS / LABS ED RECORD: BP 87/44, PULSE 95 BP 64/43, PULSE 100 H&P: WBC 20.6, LACTIC ACID 12.8 SEPSIS SEPTIC SHOCK RISKS: ACUTE HYPOXIC RESPIRATORY FAILURE; ACUTE TYLENOL POISONING. ACUTE INTRAVENTRICULAR BLEED IN THE L CAUDATE NUCLEUS. ANDREAS. TREATMENT: H&P: STARTED ON LEVOPHED THE PT DROPPED HER BP'S IN THE ER. ART LINE WAS PLACED ON THE RIGHT FEMORAL ARTERY ( IN THE ED) CPOE 04/20: IV ZOSYN Thank you, Rere (This form is maintained as a part of the permanent medical record) 2014 [employer]. All Rights Reserved Rere Joseph RN, BSN [email or web address] Office: [phone] [facility]
[2017-04-24] MEDS: Piperacillin/Tazobactam 3.375 GM in Sodium Chloride 0.9% 100 ML IVPB SCH (05:27)
--- NOTE | 2017-04-24 10:01 | PRG ---
DATE OF SERVICE: 04/24/2017 SERVICE: Pulmonary Medicine. INTERVAL HISTORY: The patient is doing really well from a respiratory standpoint. She is breathing comfortably on room air. She is much more awake and alert today. She is sitting up in bed in a beds lanie chair. She is eating some food. She is not eating very much because of nausea. She denies any headache, nausea, fever, chills or vomiting. PHYSICAL EXAMINATION: VITAL SIGNS: Afebrile, pulse 49, blood pressure 143/53, respirations 20, saturation 98% on room air. GENERAL: Patient is awake, alert, in no apparent distress. LUNGS: Decent air entry. There is no prolonged expiratory phase, wheezing, rhonchi or crackles. HEART: Normal rate, regular. ABDOMEN: Soft, nontender, nondistended. Bowel sounds are positive. MUSCULOSKELETAL: No cyanosis or clubbing. No pitting in the bilateral lower extremities. NEUROLOGIC: Grossly nonfocal. LABORATORY DATA: Blood cultures x2 and urine culture are unremarkable. ASSESSMENT: 1. Acute hypoxic respiratory failure, resolved. 2. Metabolic encephalopathy, resolved. 3. Out of hospital pulseless electrical activity arrest. 4. Overdose secondary to narcotic and Tylenol. 5. Interventricular hemorrhage. 6. Suicide attempts x2 in a period of 2 weeks. PLAN: The patient is stable for transition now to ICU to the hospital. She can be discharged from [facility] once Neurosurgery clears her. She is moving in the right direction and my suspicion is t hat by tomorrow morning, if there has been no change in her neurologic condition, she should be just fine for discharge. I will repeat liver function studies, and an INR tomorrow morning. Assuming the se improving, there will be no chronic sequelae of liver disease from her Tylenol. My suspicion is t hat the elevated AST and ALT were not from the Tylenol, but from the hypoxemic/code event. Either wa y, supportive care will be continued. I will follow her if she remains in this location.
[2017-04-24] MEDS: Sodium Chloride 0.9% 1,000 ML IV SCH (10:16)
[2017-04-24] MEDS: Amoxicillin/Potassium Clav 875 MG TAB PO SCH ×2 (10:16→20:00)
[2017-04-24] MEDS: Ondansetron HCl/PF 4 MG/2 ML Vial SLOW IVP PRN ×2 (10:16→20:00)
[2017-04-24 13:45] VITALS: BMI 25.6
--- NOTE | 2017-04-24 15:15 | PDOC.PN ---
- Subjective Encounter Start Date: 04/24/17 Encounter Start Time: 13:00 Subjective: nsg notes rev, marian ovn, pt is more awake, able to tolerate some small amts -: of PO intake but c/o nausea just now. denies pain. avoids discussiong her -: emotional status and does not answer SI/HI - Objective Vital Signs & Weight: Vital Signs (12 hours) Temp Pulse Pulse Pulse Pulse Resp BP 04/24/17 11:53 48 L 59 L 58 L 146/65 H 04/24/17 08:00 98.0 F 49 L 20 04/24/17 04:00 97.9 F BP BP Pulse Ox Pulse Ox Pulse Ox 04/24/17 11:53 139/68 123/61 98 100 04/24/17 08:00 96 04/24/17 04:00 Weight Admit Weight 139 lb Weight 149 lb 4.047 oz Most Recent Monitor Data Heart Rate from ECG 59 NIBP 123/61 NIBP BP-Mean 79 Respiration from ECG 21 SpO2 100 I&O: 04/23/17 04/24/17 04/25/17 06:59 06:59 06:59 Intake Total 3194 2233 Output Total 2527 3725 850 Balance 669 -1492 -850 Result Diagrams: 04/23/17 03:58 04/23/17 03:58 Phys Exam - Physical Examination Constitutional: NAD HEENT: PERRLA, moist MMs Respiratory: no wheezing, no rales, no rhonchi, clear to auscultation bilateral Cardiovascular: RRR, no significant murmur, no rub Gastrointestinal: soft, non-tender, no distention, positive bowel sounds Musculoskeletal: no edema, pulses present Neurological: moves all 4 limbs Psychiatric: A&O x 3 flat affect Dx/Plan (1) Coagulopathy Status: Acute (2) Intentional acetaminophen poisoning Code(s): T39.1X2A - POISONING BY 4-AMINOPHENOL DERIVATIVES, SELF-HARM, INIT Status: Acute Qualifiers: Encounter type: initial encounter Qualified Code(s): T39.1X2A - Poisoning by 4-Aminophenol derivatives, intentional self-harm, initial encounter (3) Intracerebral hemorrhage Code(s): I61.9 - NONTRAUMATIC INTRACEREBRAL HEMORRHAGE, UNSPECIFIED Status: Acute Qualifiers: Intracerebral hemorrhage etiology: nontraumatic Comment: left caudate area hemorrhage with intraventricular hemorrhage (4) Metabolic encephalopathy Code(s): G93.41 - METABOLIC ENCEPHALOPATHY Status: Acute (5) Suicide attempt by acetaminophen overdose Code(s): T39.1X2A - POISONING BY 4-AMINOPHENOL DERIVATIVES, SELF-HARM, INIT Status: Acute Qualifiers: Encounter type: subsequent encounter Qualified Code(s): T39.1X2D - Poisoning by 4-Aminophenol derivatives, intentional self-harm, subsequent encounter (6) Cardiac arrest with pulseless electrical activity Code(s): I46.9 - CARDIAC ARREST, CAUSE UNSPECIFIED Status: Chronic Comment: brief cpr done by at home prior to ems arriving (7) Acute respiratory failure Code(s): J96.00 - ACUTE RESPIRATORY FAILURE, UNSP W HYPOXIA OR HYPERCAPNIA Status: Acute Qualifiers: Respiratory failure complication: hypoxia Qualified Code(s): J96.01 - Acute respiratory failure with hypoxia (8) Overdose Code(s): T50.901A - POISONING BY UNSP DRUG/MEDS/BIOL SUBST, ACCIDENTAL, INIT Status: Acute Qualifiers: Injury intent: intentional self-harm Comment: tylenol and likely norcotics (9) Chronic anemia Code(s): D64.9 - ANEMIA, UNSPECIFIED Status: Chronic (10) Hypothyroidism Code(s): E03.9 - HYPOTHYROIDISM, UNSPECIFIED Status: Chronic Qualifiers: Hypothyroidism type: unspecified Qualified Code(s): E03.9 - Hypothyroidism , unspecified - Plan * Intentional suicide attempt with acetaminophen overdose leading to respiratory depression, hepatic injury with coagulopathy, intracranial bleeding and a hypoxic/ code situation * concerned that patient has continued SI/ HI that she is unwilling to share with providers as she completely avoids the question * also concerned that she has underlying depression which she socially masks well as family described her apparent affect as "cheerful" and "happy" and the patient as "dressed up" prior to her SI attempt * respiratory depression with acute respiratory failure, resolved * appreciate pulmonary consultation * currently extubated as of 04/22 hepatic injury * continue to monitor LFTs * limb driver of coagulopathy intracranial bleed * transfer to stroke floor * monitor neurological status with low threshold for re-imaging if any concern for altered mental status * close blood pressure monitoring - prn hydralazine if needed hx of chronic pain requiring pain regimen * discussed with patients mother at bedside that we will not be empirically resuming her home pain regimen * monitor for ssx of pain or physiological w/d * need to closely watch mental status as well suicide attempt - will need [facility] consultation prior to D/C for potential transfer to inpatient psychiatric unit diet: as per speech therapy recommendations dvt ppx: sq . Review of Systems - Medications/Allergies Allergies/Adverse Reactions: Allergies Allergy/AdvReac Type Severity Reaction Status Date / Time Iodine and Iodide Containing Allergy Verified 08/07/16 12:36 Produc Medications: Current Medications Amoxicillin/Clavulanate Potassium (Augmentin) 875 mg PO Q12HR [facility] Stop: 04/26/17 09:01 Last Admin: 04/24/17 10:16 Dose: 875 mg Hydralazine HCl (Apresoline) 10 mg SLOW IVP Q4H PRN PRN Reason: Hypertension Sodium Chloride (Normal Saline 0.9%) 1,000 mls @ 50 mls/hr IV .Q20H [facility] Last Admin: 04/24/17 10:16 Dose: 1,000 mls Ondansetron HCl (Zofran) 4 mg SLOW IVP Q6H PRN PRN Reason: Nausea/Vomiting Last Admin: 04/24/17 10:16 Dose: 4 mg
[2017-04-25] MEDS: Ondansetron HCl/PF 4 MG/2 ML Vial SLOW IVP PRN ×2 (04:04→10:26)
[2017-04-25] MEDS: Sodium Chloride 0.9% 1,000 ML IV SCH ×2 (04:08→07:32)
[2017-04-25 04:27] LABS: INR-International Normal Ratio 1.1; Prothrombin Time 14.5 SEC (12.0-14.7)
[2017-04-25 04:35] LABS: ALT (SGPT) 129 U/L (8-55); AST (SGOT) 31 U/L (5-34); Albumin 3.2 g/dL (3.5-5.0); Alkaline Phosphatase 88 U/L (40-150); Bilirubin, Direct 0.3 mg/dL (0.1-0.3); Bilirubin, Total 0.6 mg/dL (0.2-1.2); Protein, Total 6.1 g/dL (6.0-8.3)
[2017-04-25] MEDS: Amoxicillin/Potassium Clav 875 MG TAB PO SCH (08:42)
--- NOTE | 2017-04-25 11:55 | PRG ---
DATE OF SERVICE: 04/25/2017 SERVICE: Pulmonary Medicine. INTERVAL HISTORY: The patient is doing fine from a respiratory standpoint. Cardiovascular, she is d oing quite well. Her only complaint this morning is significant nausea. It is causing her to hyperv entilate a little bit. Otherwise, there has been no overnight event or interval change to her condit ion. PHYSICAL EXAMINATION: VITAL SIGNS: Afebrile, pulse 73, blood pressure 132/55, respirations 15, saturation 99% on room air. GENERAL: Patient is awake, alert, in no apparent distress. LUNGS: Decent air entry. There is no prolonged expiratory phase or wheezing identified. HEART: Normal rate, regular. ABDOMEN: Soft, nontender, and nondistended. Bowel sounds are positive. MUSCULOSKELETAL: No cyanosis or clubbing. No pitting in the bilateral lower extremities. NEUROLOGIC: Grossly nonfocal. LABORATORY DATA: INR 1.1 this morning with a normal PT. Liver function studies continue to improve including AST and ALT that are down trending into the normal range. Total bilirubin is also normal. Direct bilirubin falls within the normal limits. Albumin is rebounding. Blood cultures x2 and urin e culture are both are unremarkable. ASSESSMENT: 1. Acute hypoxic respiratory failure, resolved. 2. Metabolic encephalopathy, resolved. 3. Out of hospital pulseless electrical activity arrest. 4. Overdose secondary to narcotic and Tylenol. 5. Interventricular hemorrhage. 6. Suicide attempts x2 in a period of 2 weeks. PLAN: The patient remains a little nauseated. At this point, we will continue supportive measures. If she starts having abnormal findings on physical exam of the belly, CT scan can be considered. Th at being said, my suspicion is that this may be associated with blood in ventricular system of the br ain. Once Neurosurgery clears the patient for discharge, she will be medically stable for transition home. Pulmonary or Critical Care will continue to follow while she remains in this location, but we will continue working on getting her to the stroke unit.
--- NOTE | 2017-04-25 13:35 | PDOC.PN ---
- Subjective Encounter Start Date: 04/25/17 Encounter Start Time: 13:35 Subjective: nsg notes rev, marian ovn, c/o nausea -: does not answer inquries re: SI/ HI. otherwise no new c/o -: please see discharge summary for remainder of information - Objective Vital Signs & Weight: Vital Signs (12 hours) Temp Pulse Resp Pulse Ox 04/25/17 08:00 98.5 F 73 14 94 L 04/25/17 07:00 98.5 F 04/25/17 04:00 98.2 F Weight Admit Weight 139 lb Weight 148 lb 9.6 oz Most Recent Monitor Data Heart Rate from ECG 56 NIBP 132/55 NIBP BP-Mean 74 Respiration from ECG 20 SpO2 99 I&O: 04/24/17 04/25/17 04/26/17 06:59 06:59 06:59 Intake Total 2233 1013 100 Output Total 3725 2725 300 Balance -1492 -1712 -200 Result Diagrams: 04/23/17 03:58 04/23/17 03:58 Dx/Plan (1) Coagulopathy Status: Acute (2) Intentional acetaminophen poisoning Code(s): T39.1X2A - POISONING BY 4-AMINOPHENOL DERIVATIVES, SELF-HARM, INIT Status: Acute Qualifiers: Encounter type: initial encounter Qualified Code(s): T39.1X2A - Poisoning by 4-Aminophenol derivatives, intentional self-harm, initial encounter (3) Intracerebral hemorrhage Code(s): I61.9 - NONTRAUMATIC INTRACEREBRAL HEMORRHAGE, UNSPECIFIED Status: Acute Qualifiers: Intracerebral hemorrhage etiology: nontraumatic Comment: left caudate area hemorrhage with intraventricular hemorrhage (4) Metabolic encephalopathy Code(s): G93.41 - METABOLIC ENCEPHALOPATHY Status: Acute (5) Suicide attempt by acetaminophen overdose Code(s): T39.1X2A - POISONING BY 4-AMINOPHENOL DERIVATIVES, SELF-HARM, INIT Status: Acute Qualifiers: Encounter type: subsequent encounter Qualified Code(s): T39.1X2D - Poisoning by 4-Aminophenol derivatives, intentional self-harm, subsequent encounter (6) Cardiac arrest with pulseless electrical activity Code(s): I46.9 - CARDIAC ARREST, CAUSE UNSPECIFIED Status: Chronic Comment: brief cpr done by at home prior to ems arriving (7) Acute respiratory failure Code(s): J96.00 - ACUTE RESPIRATORY FAILURE, UNSP W HYPOXIA OR HYPERCAPNIA Status: Acute Qualifiers: Respiratory failure complication: hypoxia Qualified Code(s): J96.01 - Acute respiratory failure with hypoxia (8) Overdose Code(s): T50.901A - POISONING BY UNSP DRUG/MEDS/BIOL SUBST, ACCIDENTAL, INIT Status: Acute Qualifiers: Injury intent: intentional self-harm Comment: tylenol and likely norcotics (9) Chronic anemia Code(s): D64.9 - ANEMIA, UNSPECIFIED Status: Chronic (10) Hypothyroidism Code(s): E03.9 - HYPOTHYROIDISM, UNSPECIFIED Status: Chronic Qualifiers: Hypothyroidism type: unspecified Qualified Code(s): E03.9 - Hypothyroidism , unspecified - Plan * . Review of Systems - Medications/Allergies Allergies/Adverse Reactions: Allergies Allergy/AdvReac Type Severity Reaction Status Date / Time Iodine and Iodide Containing Allergy Verified 08/07/16 12:36 Produc Medications: Current Medications Amoxicillin/Clavulanate Potassium (Augmentin) 875 mg PO Q12HR [facility] Stop: 04/26/17 09:01 Last Admin: 04/25/17 08:42 Dose: 875 mg Hydralazine HCl (Apresoline) 10 mg SLOW IVP Q4H PRN PRN Reason: Hypertension Sodium Chloride (Normal Saline 0.9%) 1,000 mls @ 50 mls/hr IV .Q20H [facility] Last Admin: 04/25/17 07:32 Dose: 1,000 mls Ondansetron HCl (Zofran) 4 mg SLOW IVP Q6H PRN PRN Reason: Nausea/Vomiting Last Admin: 04/25/17 10:26 Dose: 4 mg
--- NOTE | 2017-04-25 16:58 | EKG ---
Test Reason : Blood Pressure : / mmHG Vent. Rate : 097 BPM Atrial Rate : 097 BPM P-R Int : 166 ms QRS Dur : 086 ms QT Int : 414 ms P-R-T Axes : 060 -17 008 degrees QTc Int : 525 ms Normal sinus rhythm Low voltage QRS Nonspecific ST abnormality Prolonged QT Abnormal ECG Confirmed by JOSE HATHAWAY ([id number]), editor publications FATEMEH LESLIE ([id number]) on 04/25/2017 4:58:22 PM Referred By: Confirmed By:JOSE HATHAWAY
[2017-04-25 18:17] VITALS: BP 132/55; TEMP 97.6
--- NOTE | 2017-04-26 13:02 | DIS ---
PRIMARY CARE PHYSICIAN: Dr. Sage Goldstein. TECH ED/WOODSHOP TEACHER: Dr. Huy Cruz. DATE OF DISCHARGE: 04/25/2017 DISCHARGE DIAGNOSES: 1. Suicide attempt with Tylenol overdose. 2. Tylenol induced hypoxic respiratory failure. 3. Intracerebral hemorrhage secondary to Tylenol overdose. 4. Transaminitis, significantly improved. 5. Troponin elevation secondary to hypoxic respiratory failure. BRIEF SUMMARY OF HOSPITAL COURSE: This is a 51-year-old female, who was initially discharged for a b enzodiazepine overdose on 04/18/2017, who subsequently returned two days later with an intentional marques icide attempt with Tylenol overdose. Please see the original history and physical for full details s urrounding admission. The patient was found to be lethargic at home and demonstrated hypoxic respira tory failure on presentation. Subsequently, requiring intubation with mechanical ventilation. Pulmo nary Medicine was consulted. The patient also demonstrated intracranial hemorrhage, Neurosurgery was consulted. No other neurosurgical intervention was required and at the time of discharge, the patie nt's mentation while not at her baseline has progressively improved day by day. At the time of disch arge it is felt that her physiological issues are secondary to her Tylenol overdose including hypoxic respiratory failure causing subsequent transaminitis and associated coagulopathy leading to intracra nial hemorrhage. Serial CT of the brain did not demonstrate any further progression of the bleed. Patient is currently being referred to inpatient psychiatric facility for her suicide attempt. Of no te, at the time of discharge from our facility on 04/18/2017, the patient has a plan for home safety including her , who was taking time off to stay at home with her, family and friends who trave led in from out of town to stay with her as well. Per the patient's mother's report, the patient was well-groomed, and acted appropriately, and there is no indication that she would have a subsequent s uicide attempt as she did not appear depressed or verbalize any emotional distress. Concerningly, du ring hospitalization after extubation, when inquired about her emotional state and whether or not she has any continued suicidal or homicidal ideations, the patient refuses to answer these questions and otherwise directs the conversation elsewhere. Remainder chronic medical issues were stable during t his hospitalization. CONSULT: Neurosurgery, Pulmonary Critical Care. MEDICATION RECONCILIATION: Please see the EMR for full details. Of note, the patient's Paxil, which she had recently been started within the last month has been discontinued. Otherwise, the patient w ill continue her home regimen. Also appears that she was being discharged on a course of Augmentin f or upper respiratory type concern from her prior discharge, she will continue and finish that course of antibiotics on an outpatient basis. DISCHARGE AND FOLLOWUP INSTRUCTIONS: Patient is currently being discharged to an inpatient facility. I have discussed the case with the accepting physician at that facility. PATIENT'S CONDITION AT DISCHARGE: VITAL SIGNS: Temperature 97.6, pulse of 56, respirations 18, blood pressure 132/55. GENERAL: The patient is awake, alert, appropriate, conversant, in no acute distress, lying in the ho spital bed. HEENT: Moist mucous membranes. Equal ocular motions are intact. CARDIOVASCULAR: S1, S2. Pulses 2+ bilateral upper extremities, no pitting pedal edema. RESPIRATORY: No wheezes, rales or rhonchi. reasonable air movement. ABDOMEN: Positive bowel sounds, soft, and grossly nontender to palpation. MUSCULOSKELETAL: Moving all 4 extremities. MOST RECENT LABORATORY RESULTS: LFTs from 04/25/2017 demonstrate total bilirubin of 0.6, direct bili roberts of 0.3, AST 31, ALT of 129, alkaline phosphatase 88, albumin 3.2, and total serum protein of 6. 1. Of note, at peak on 04/21/2017, patient had an AST of 922 and an ALT of 652. After presentation to the Emergency Department, the patient had a hypoxic code event. She was intuba leola during this event. She did have a loss of pulses and underwent CPR, but did not apparently requi re any medications during the ACLS protocol. She was also started on acetylcysteine and completed a full course during this hospitalization. Thank you for asking me care for this patient. Greater than 30 minutes spent coordinating discharge.
== END 2017-04-25 19:30 | DRG 917 ==
LOC: ERS 15:48 → CCU 21:57
PROVIDERS: ADMIT Family Medicine; ATTEND Family Medicine
PROC: 5A1945Z Respiratory Ventilation, 24-96 Consecutive Hours (ICD-10-PCS; principal; 2017-04-20)
PROC: 02HV33Z Insertion of Infusion Device into Superior Vena Cava, Percutaneous Approach (ICD-10-PCS; 2017-04-20)
PROC: 0BH17EZ Insertion of Endotracheal Airway into Trachea, Via Natural or Artificial Opening (ICD-10-PCS; 2017-04-20)
DX: T39.1X2A Poisoning by 4-Aminophenol derivatives, intentional self-harm, initial encounter (principal); A41.9 Sepsis, unspecified organism; J96.01 Acute respiratory failure with hypoxia; I61.5 Nontraumatic intracerebral hemorrhage, intraventricular; R65.21 Severe sepsis with septic shock; J69.0 Pneumonitis due to inhalation of food and vomit; G93.41 Metabolic encephalopathy; N17.9 Acute kidney failure, unspecified; T42.6X2A Poisoning by other antiepileptic and sedative-hypnotic drugs, intentional self-harm, initial encounter; Y92.009 Unspecified place in unspecified non-institutional (private) residence as the place of occurrence of the external cause; F32.9 Major depressive disorder, single episode, unspecified; E03.9 Hypothyroidism, unspecified
CPT/HCPCS: 31500; 36415; 36556; 36620; 70450; 71045; 80053; 80076; 80307; 81003; 81015; 81025; 82140; 82550; 82553; 82805; 83605; 83690; 83735; 84100; 84443; 84484; 85007; 85025; 85027; 85379; 85610; 85730; 86850; 86900; 86901; 87040; 87086; 93005; 94002; 94003; 94640; 96361; 96365; 96366; 96368; 96375; 99292; A4216; C9132; G8978-GP-CK; G8979-GP-CI; G8996-GN-CK; G8997-GN-CJ; J0132; J0692; J2270; J2405; J2543; J2597; J3010; J3370; J3430; J3475; J3480; J7050; J7070; J7644; S0028